=== PATIENT | female | born 1945 | race Caucasian/White ===

== ENCOUNTER → 2018-11-16 07:14 | Outpatient (CLI) | payer MEDICARE, SELFPAY ==
--- NOTE | 2018-11-16 07:21 | MRI_ITS ---
STUDY: MRA OF THE HEAD WITHOUT CONTRAST REASON FOR EXAM: Female, 73 years old. 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 The study was performed unenhanced. COMPARISON: Brain MRI 03/14/2016. FINDINGS: Normal bilateral petrous carotid arteries. Normal right cavernous carotid artery with a normal supraclinoid bifurcation. Normal left cavernous carotid artery with a normal supraclinoid bifurcation. Normal right A1 segments of the anterior cerebral artery. Normal left A1 segments of the anterior cerebral artery. Normal intact anterior communicating artery (ACOM). Normal bilateral A2 segments of the anterior cerebral arteries. Normal right M1 and M2 segments of the middle cerebral arteries, with a normal M1 bifurcation. Normal left M1 and M2 segments of the middle cerebral arteries, with a normal M1 bifurcation. Normal right posterior communicating artery (PCOM). Normal left posterior communicating artery (PCOM). There is an atretic right vertebral artery with a dominant left vertebral artery. Normal basilar artery with a normal basilar bifurcation. The visualized bilateral superior cerebellar (SCA) arteries are normal. Normal bilateral P1, P2 and visualized P3 segments of the posterior cerebral arteries. There is no demonstrated aneurysm of the [place]. There is no major vessel occlusion or hemodynamically significant stenosis. There is no demonstrated abnormality of the visualized brain. MRI/MRA Head ONLY without Contrast IMPRESSION: There is an atretic right vertebral artery with a dominant left vertebral artery. Otherwise normal [place]. Electronically Signed: Sissy Wilson, at 10:58 EDT Tel , Service support ,
--- NOTE | 2018-11-16 07:22 | MRI_ITS ---
STUDY: MRI BRAIN WITH AND WITHOUT CONTRAST REASON FOR EXAM: Female, 73 years old. 3rd nerve palsy, diplopia TECHNIQUE: Standardized multiplanar fat and water weighted pulse sequences were obtained. 10 IV Dotarem was administered for the contrast portion of the examination. COMPARISON: 03/14/2016 FINDINGS: There is moderate cerebral atrophy with widening of the extra-axial spaces and ventricular dilatation. There are multiple white matter hyperintensities, distributed throughout the deep white matter tracts of the cerebral hemispheres, consistent with moderate chronic white matter ischemic changes. There is no evidence for recent intracranial ischemia or other cause of cytotoxic edema on diffusion weighted imaging (DWI). Normal T2* images of the brain without demonstrated susceptibility artifact. There is no demonstrated hemosiderin stain. Normal bilateral basal ganglia. Normal thalami. There is no extra-axial fluid accumulation. Normal flow voids within the major intracranial circulation suggesting patency by spin echo criteria. Normal venous enhancement. There is no enhancing intra-axial or extra-axial abnormality. There is enlargement of the sella turcica with increased CSF within the sella and flattening of the pituitary gland consistent with an empty sellar syndrome. Normal infundibular stalk, hypothalamus, and optic chiasm. Normal tectal plate and pineal gland. Normal midbrain, bryant and medulla. Normal cerebellum. Normal basal cisterns. Normal bilateral temporal bones. Normal bilateral internal auditory canals. No demonstrated orbital abnormality, within the constraints of a routine brain study. Normal visualized paranasal sinuses. Normal calvarium and skull base. Normal visualized soft tissue structures. Normal visualized upper cervical spine. MRI/Brain W/WO Contrast IMPRESSION: Involutional changes of the brain, as described above. No acute infarct. Electronically Signed: Joshua Mcclure MD at 10:52 EDT Tel , Service support ,
[2018-11-16 07:35] LABS: Erythrocyte Sedimentation Rate 5 mm/hr (0-30)
[2018-11-16 07:37] LABS: Hematocrit 48.3 % (37-47); Hemoglobin 16.4 g/dL (12.0-15.0); Mean Corpuscular Hgb 33.4 pg (27.0-32.0); Mean Corpuscular Volume 98.4 fL (81-99); Mean Platelet Vol. 9.1 fl (6.2-12.0); Platelet Count 285 K/mm3 (150-450); RBC Distribution Width CV 13.1 % (11.6-14.6); RBC Distribution Width SD 47.2 fl (35.1-43.9); Red Blood Count 4.91 M/mm3 (4.2-5.4); White Blood Count 5.2 K/mm3 (4.4-11.0)
[2018-11-16 07:47] LABS: Creatinine, Serum 0.83 mg/dL (0.55-1.02); EST Glomerular Filtration Rate 72 mL/min (>60); Est Glom Filt Rate - Afr Amer 87 mL/min (>60)
== END ==
PROVIDERS: Family Provider Family Medicine; PCP Family Medicine; Referring Provider Ophthalmology; Visit Provider Ophthalmology
DX: H49.00 Third [oculomotor] nerve palsy, unspecified eye (principal)
CPT/HCPCS: 36415; 70544; 70553; 82565; 85027; 85652; 86140; A9575

== ENCOUNTER 2022-03-25 20:36 | Inpatient (IN) | payer MEDICARE, SELFPAY ==
[2022-03-25 20:37] VITALS: BP 136/57; PULSE 76; RESP 19; TEMP 36.4; O2SAT 96; BMI 22.9
--- NOTE | 2022-03-25 22:04 | EX.ED.DYSGE1 ---
HPI History of Present Illness Chief Complaint: Weakness Narrative Narrative: 77 female past medical history of hypertension, COPD, smoker, presents with generalized weakness and dehydration. She denies any nausea or vomiting. No diarrhea. No fevers or chills. Her son is with her and states that she had decreased urine output and has not been able to urinate all day. He states that she had an appointment with her primary care provider today at 10:00, 12 hours ago, stated that she was dehydrated, prescribed her sulfur pills. And sent her home. She has been drinking water but states that her mouth feels dry and she is thirsty. They state that she is here for IV fluids. [facility] Medical History Alcohol abuse COPD (chronic obstructive pulmonary disease) History of SIADH HTN (hypertension) Hypothyroid Seizure Tobacco use Home Medications levothyroxine 75 mcg tablet 75 mcg PO DAILY 03/12/16 [History Last Taken 03/12/16] lisinopril 20 mg tablet 40 mg PO DAILY 03/12/16 [History Last Taken 03/12/16] metoprolol tartrate 100 mg tablet 100 mg PO BID 03/12/16 [History Last Taken 03/12/16] amlodipine 5 mg tablet mg 03/25/22 [History Last Taken Unknown] omeprazole 20 mg tablet,delayed release 20 mg PO DAILY 03/25/22 [History Last Taken Unknown] Allergy/AdvReac Type Severity Reaction Status Date / Time Penicillins Allergy Unknown Verified 03/25/22 20:40 Family History (Updated 03/25/22 @ 23:[address] Allyssa Pang MD) Father Heart disease Hypertension Surgical History (Updated 03/25/22 @ 23:[address] Allyssa Pang MD) History of cataract surgery Social History (Updated 03/25/22 @ 23:[address] Allyssa Pang MD) Smoking Status: Current every day smoker tobacco type: cigarettes Smoking packs per day: 1 Smoking cigarettes per day: 20.0 alcohol intake: current substance use type: does not use ROS ROS ED ROS Narrative Constitutional: No fever, no chills. HEENT: No sore throat. No neck pain. No loss of vision. No rhinorrhea. Cardiovascular: No chest pain. No palpitations. No pedal edema. Respiratory: No cough, no shortness of breath. Abdominal: No abdominal pain. No nausea. No vomiting. No diarrhea. Genitourinary: No dysuria. No hematuria. Decreased urine output. No urination since yesterday. Musculoskeletal: No myalgias. No arthralgias. Neurologic: No headaches. No dizziness. No lightheadedness. Generalized weakness. Skin: No rash. No change in color. Psychiatric: No depression. No anxiety. EXAM Physical Exam Narrative Exam Narrative: Afebrile. Vital signs noted. HEENT: Normocephalic. Atraumatic. PERRL, EOMI. Neck soft and supple. No point tenderness or step off. Cardiovascular: Regular rate and rhythm. No murmurs, rubs, or gallops appreciated. Respiratory: No tachypnea. Lungs clear to auscultation bilaterally. Gastrointestinal: Abdomen soft, nontender, with normoactive bowel sounds. No rebound or guarding. Neurological: Awake. Alert. Nonfocal, nonlateralizing. Skin: No rash. Normal color. No pallor. Musculoskeletal: No pedal edema. Full range of motion extremities. Const Vital Signs: 03/25/22 20:37 03/25/22 21:35 03/25/22 22:36 Temperature 97.5 F L Temperature Source Oral Pulse Rate 76 82 Respiratory Rate 19 H 25 H Respiratory Effort Normal Respiratory Pattern Normal Blood Pressure 136/57 H Blood Pressure Mean 83 Pulse Ox 96 96 Oxygen Delivery Method Room Air MDM MDM MDM Narrative Medical decision making narrative: Patient was bolused IV fluids. She is not hypotensive. She is not tachycardic. I will check a CBC, CMP, and urinalysis. CMP is returned with a sodium of 107 and a chloride of 69. BUN normal at 11 with creatinine of 0.83. AST slightly elevated to 21 which I think is nonspecific. CBC is currently pending. In discussion with the hospitalist, she has had hyponatremia and seizures secondary to SIADH. Given her low sodium of 107, she was admitted to the ICU in stable condition. There is been no seizure activity here currently. Cath urine is currently pending also. Patient is in guarded condition. Lab Data Attestation: I reviewed the patient's lab results. Labs: Laboratory Results - last 24 hr 03/25/22 20:55 Sodium 107 L* Potassium 3.9 Chloride 69 L* Carbon Dioxide 22.0 Anion Gap 16 H BUN 11 Creatinine 0.83 Estim Creat Clear Calc 45.61 Est GFR (MDRD) Af Amer 86 Est GFR (MDRD) Non-Af 71 BUN/Creatinine Ratio 13.3 Glucose 102 Calcium 8.9 Total Bilirubin 1.00 AST 221 H ALT 45 Alkaline Phosphatase 63 Total Protein 7.0 Albumin 3.6 Globulin 3.4 Albumin/Globulin Ratio 1.1 Critical Care Time Critical Care Time: Yes Critical care time (excluding procedures): 30-74 minutes (31), Including time spent:, Discussing w/Patient &/or Family/Leather Scraper, Discussing w/Consultants, Arranging Admission or Transfer and Performing Direct Patient Care at Bedside Discharge Plan Dx/Rx/DC Orders Clinical Impression: Hyponatremia, Dehydration, Hypochloremia Disposition Disposition: Acute Care Hospital [facility] [facility]
[2022-03-25] MEDS: 0.9% Normal Saline 1,000 ML 999 ML IV (22:14)
[2022-03-25 22:36] VITALS: PULSE 82; RESP 25; O2SAT 96
[2022-03-25 22:36] LABS: ALB/GLOB Ratio 1.1 RATIO (0.9-2.4); AST(SGOT) 221 U/L (15-37); Alanine Aminotransfer ALT/SGPT 45 U/L (13-56); Albumin, Serum 3.6 g/dL (3.2-5.0); Alkaline Phosphatase 63 U/L (45-117); Anion Gap 16 (5-15); BUN 11 mg/dL (7-18); BUN/Creat Ratio 13.3 RATIO (10-20); Calcium,Total 8.9 mg/dL (8.5-10.1); Chloride 69 mmol/L (98-107); Creatinine, Serum 0.83 mg/dL (0.55-1.02); EST Glomerular Filtration Rate 71 mL/min (>60); Est Glom Filt Rate - Afr Amer 86 mL/min (>60); Estimated Creatinine Clearance 45.61 ml/min; Globulin 3.4 g/dL (2.2-4.2); Glucose 102 mg/dL (74-106); Potassium 3.9 mmol/L (3.5-5.1); Sodium Level 107 mmol/L (136-145)
[2022-03-25 23:16] LABS: Bacteria 0 SEEN /hpf (None Seen); Mucous, Urine 0 SEEN /hpf (<or=2+); Red Blood Cells-Urine 0 SEEN /hpf (0-5); Squamous Epithelial Cells - UA 0 SEEN /hpf (5-10)
--- NOTE | 2022-03-25 23:16 | PCM.HP.STD ---
HPI - General General Date of Admission: 03/25/22 Date of Service: 03/25/22 Chief Complaint: Weakness, dehydration, decreased UOP. HPI Narrative The patient is a 77 y/o F w/ PMHx: History of prior seizure in the settings of Acute Hyponatremia (2015) perported SIADH related at that time, EtOH abuse (heavy beer intake history), HTN, COPD, Hypothyroidism who presents to the [facility] ED on 03/25/22 with history of significant weakness and significant decreased oral intake as well as profound urine output decrease reportedly not urinating all day with PCP evaluation at 10 AM on day of presentation diagnosed with dehydration prescribed potentially sulfa pills per report and discharged to home with encouragement of increased oral intake. She states she has been drinking water but her mouth feels dry and she is thirsty. Work-up in the ED included T97.5, heart rate 76, BP 136/57, respiratory rate 19, 96% on room air, CBC pending upon requested evaluation of patient, CMP with sodium 107, chloride 69, anion gap 16, BUN/creatinine 11/0.83, AST/ALT 221/45, alk phos 63, total bilirubin 1.0 otherwise [place] profile not marked appearing. In the ED patient administered 1 L normal saline bolus. [facility] Medical History Alcohol abuse COPD (chronic obstructive pulmonary disease) History of SIADH HTN (hypertension) Hypothyroid Seizure Tobacco use Home Medications levothyroxine 75 mcg tablet 75 mcg PO DAILY 03/12/16 [History Last Taken 03/12/16] lisinopril 20 mg tablet 40 mg PO DAILY 03/12/16 [History Last Taken 03/12/16] metoprolol tartrate 100 mg tablet 100 mg PO BID 03/12/16 [History Last Taken 03/12/16] amlodipine 5 mg tablet mg 03/25/22 [History Last Taken Unknown] omeprazole 20 mg tablet,delayed release 20 mg PO DAILY 03/25/22 [History Last Taken Unknown] Allergy/AdvReac Type Severity Reaction Status Date / Time Penicillins Allergy Unknown Verified 03/25/22 20:40 Family History (Updated 03/25/22 @ 23:[address] Allyssa Pang MD) Father Heart disease Hypertension Surgical History (Updated 03/25/22 @ 23:[address] Allyssa Pang MD) History of cataract surgery Social History (Updated 03/26/22 @ 01:[address] Allyssa Pang MD) Smoking Status: Current every day smoker tobacco type: cigarettes Smoking packs per day: 1 Smoking cigarettes per day: 20.0 alcohol intake: current alcohol intake frequency: 3 or more drinks per day details: Reports at least 2-4 beers daily. substance use type: does not use ROS ROS Narrative Admission Review of Systems: CONSTITUTIONAL: No weight loss, fever, chills, + weakness or fatigue. HEENT: Eyes: No visual loss, blurred vision, double vision or yellow sclerae. Ears, Nose, Throat: No hearing loss, sneezing, congestion, runny nose or sore throat. SKIN: No rash or itching, lesions, wounds. CARDIOVASCULAR: No chest pain, chest pressure or chest discomfort, palpitations, edema, orthopnea, syncopal events. RESPIRATORY: No shortness of breath, cough or sputum, wheezing, hemoptysis. GASTROINTESTINAL: + anorexia, No nausea, vomiting or diarrhea, abdominal pain, melena, BRBPR. GENITOURINARY: No dysuria, frequency, urgency or retention. NEUROLOGICAL: + Hx prior seizure, No headache, dizziness, syncope, paralysis, ataxia, numbness or tingling in the extremities, focal weakness, change in bowel or bladder control, seizure. MUSCULOSKELETAL: + muscle, back pain, joint pain or stiffness. HEMATOLOGIC: + Easy bleeding or bruising. LYMPHATICS: No enlarged nodes. No history of splenectomy. PSYCHIATRIC: No history of depression or anxiety. ENDOCRINOLOGIC: No reports of sweating, cold or heat intolerance. No polyuria or polydipsia. ALLERGIES: No history of asthma, hives, eczema or rhinitis. Vital Signs Vital Signs Vital Signs: 03/25/22 20:37 03/25/22 21:35 03/25/22 22:36 Temperature 97.5 F L Temperature Source Oral Pulse Rate 76 82 Respiratory Rate 19 H 25 H Respiratory Effort Normal Respiratory Pattern Normal Blood Pressure 136/57 H Blood Pressure Mean 83 Pulse Ox 96 96 Oxygen Delivery Method Room Air Weight Weight: 125 lb 7.088 oz Body Mass Index (BMI) 22.9 Physical Exam Narrative Physical Examination: General: Awake, alert, oriented x 3 and cooperative, laying in the ED bed, fatigued appearing, flat affect. Skin: Normal color, decreased turgor, no icterus, no cyanosis. HEENT: AT/NC, EOMI, PERRLA, dry MM, no carotid bruits or JVD noted. Lungs: Mildly diminished, greater bases, occasional end expiratory wheeze, rales or rhonchi. Heart: Regular rate and rhythm; no gallop, rub audible. Abdomen: Soft, NTTP, ND, mildly hyperactive BS, + HM. Extremities: No cyanosis, clubbing, or edema. Neurological: Patient awake, alert, oriented as noted, cognitive function appears baseline intact; pupils equally reactive to light and accommodation, cranial nerves II-XII grossly normal, moving all 4 extremities, no focal deficits, strength moderately to severely globally Emiliana secondary to acute presentation. Psychiatric: Affect appears flat, fatigued , no acute evidence of depressive or anxiety feelings. Results Lab / Micro Data Result Diagrams: 03/25/22 20:55 03/25/22 20:55 Labs: Laboratory Results - last 24 hr 03/25/22 20:55: Sodium 107 L*, Potassium 3.9, Chloride 69 L*, Carbon Dioxide 22.0, Anion Gap 16 H, BUN 11, Creatinine 0.83, Estim Creat Clear Calc 45.61, Est GFR (MDRD) Af Amer 86, Est GFR (MDRD) Non-Af 71, BUN/Creatinine Ratio 13.3, Glucose 102, Calcium 8.9, Total Bilirubin 1.00, AST 221 H, ALT 45, Alkaline Phosphatase 63, Total Protein 7.0, Albumin 3.6, Globulin 3.4, Albumin/Globulin Ratio 1.1 Assessment & Plan Assessment/Plan (1) Hyponatremia: PLAN: Plan The patient is a 77 y/o F w/ PMHx: History of prior seizure in the settings of Acute Hyponatremia (2015) perported SIADH related at that time, EtOH abuse (heavy beer intake history), HTN, COPD, Hypothyroidism who presents to the [facility] ED on 03/25/22 with history of significant weakness and significant decreased oral intake as well as profound urine output decrease reportedly not urinating all day with PCP evaluation at 10 AM on day of presentation diagnosed with dehydration prescribed potentially sulfa pills per report and discharged to home with encouragement of increased oral intake. #1. Acute on Chronic Hyponatremia, suspected hypovolemic component given significant decreased oral intake and urine output decreased complicated by potentially beer potomania with alcohol abuse history however patient does have prior SIADH history, certainly still concern could be SIADH but again concern for hypovolemic initially so cautiously hydrating: Admission Na 107, baseline appearance last noted 1 25-1 30 baseline range, suspect secondary to currently significant dehydration at least from history, will admit to the ICU, continue judicious normal saline at this point, continue to closely monitor, obtain FeNa, Ilda, UOsm, mag, TSH, renal US given no urine output to be cautious, will obtain nephrology given significant prior history with similar hyponatremia presentation but at that time SIADH with seizure activity, repeat serial BMPs, will defer/give hypertonic saline at this time however if any concerns with headache, nausea, ataxia, confusion or certainly seizure activity will transition to hypertonic saline. Photographic Editor will also be consulted. Will avoid medications that would exacerbate hyponatremia such as NSAIDs, thiazide diuretic, or SSRIs. #2. EtOH Abuse: Patient notes routine consumption of at least 2-4 beers per day. Will maintain on CIWA protocol, MVI, thiamine and folic acid. Case management consulted for substance abuse. Encourage safe sobriety. #3. Chronic COPD: Not on any chronic inhaler, PRN albuterol, HOB, IS parameters. #4. Hypertension: Continue home regimen including metoprolol, lisinopril, amlodipine with hold parameters as needed, PRN hydralazine. #5. Hypothyroidism: We will continue patient home levothyroxine regimen. #6. Tobacco Abuse: Encouraged cessation, inpatient consultation per RT, NR if desired. #7. GERD: We will continue patient on PPI. #8. DVT prophylaxis: SCDs, Lovenox. #9. CODE status: Patient ETIENNE is her son Rogerio and living will is per report currently in place. Discussed CODE status at length including difference between FULL code, DNR-CCA and DNR-CC status. Following discussions about the differences in these status, requested Full Code status. Advanced Care Planning Face to Face Time: 16 minutes. Charges/Coding Visit Charges Inpatient E&M: 85360 Init Hosp L3 Procedures Hospitalists Procedures: 33911 Advncd Care Plan 30 Min
[2022-03-25 23:20] LABS: Color, Urine Yellow (Yellow); Glucose, Dipstick 50 mg/dl (Normal); Leukocyte Esterase-Dipstick 25 /ul (Negative); Nitrite-Dipstick Negative (Negative); Occult Blood-Urine 250 /ul (Negative); Protein-Dipstick 30 mg/dl (Negative); Urine Bilirubin Dipstick Negative (Negative); Urine Clarity Clear (Clear); Urine Urobilinogen 1 mg/dl (Normal)
[2022-03-25 23:31] LABS: Ketone-Dipstick 150 mg/dl (Negative)
[2022-03-25 23:45] LABS: White Blood Cells 0-5 SEEN /hpf (0-5)
[2022-03-25 23:47] VITALS: BP 102/36; PULSE 73; RESP 22; TEMP 37.2; O2SAT 94
[2022-03-26] VITALS (62 sets, daily range): BP systolic 70–173; BP diastolic 38–95; PULSE 11–98; RESP 14–27; TEMP 36.7–37.7; O2SAT 93–100; BMI 28.1
--- NOTE | 2022-03-26 00:22 | ED.RN ---
PATIENTS NITZA CRAWLEY CALLED, MESSAGE LEFT. UPDATED THAT PATIENT WILL BE ADMITTED TO ICU TONIGHT.
[2022-03-26 00:57] LABS: Magnesium 1.9 mg/dL (1.6-2.6); Phosphorus 2.3 mg/dL (2.5-4.9)
[2022-03-26 02:13] LABS: Urine Sodium 86 mmol/L (Not Establ.)
--- NOTE | 2022-03-26 02:49 | ED.RN ---
DUE TO PATIENTS EXTENDED STAY IN ED WAITING FOR ICU BED, THIS RN STARTED IV FLUIDS ORDERED BY DR LITTLEJOHN 0.9NS AT 100ML/HR AT THIS TIME. UNABLE TO DOCUMENT ON MAY DUE TO IT BEING AN ADMISSION ORDER.
[2022-03-26 02:56] LABS: Absolute Lymphocyte Count 0.38 X10^3/uL (0.83-4.51); Basophil# 0.01 X10^3/uL; Basophil% 0.1 % (0-1); Hematocrit 41.7 % (37-47); Lymphocyte # 0.38 X10^3/ul (0.83-4.51); Lymphocyte % 3.6 % (19-41); Mean Corpuscular Volume 87.8 fL (81-99); Mean Platelet Vol. 9.5 fl (6.2-12.0); Monocyte# 0.88 X10^3/uL; Monocyte% 8.4 % (0-10); NRBC Flagged by Analyzer 0 % (0-5); Neutrophil # 8.96 X10^3/uL (2.7-7.7); Neutrophil % 85.8 % (47-70); POSITIVE COUNT YES; POSITIVE DIFFERENTIAL YES; Platelet Count 176 K/mm3 (150-450); RBC Distribution Width SD 38.8 fl (35.1-43.9); Red Blood Count 4.75 M/mm3 (4.2-5.4); White Blood Count 10.4 K/mm3 (4.4-11.0)
[2022-03-26] MEDS: 0.9% Normal Saline 1,000 ML 100 ML IV ×3 (04:45→18:47)
[2022-03-26 05:03] LABS: Osmolality, Urine 447 mOsm/KG
--- NOTE | 2022-03-26 05:55 | US_ITS ---
STUDY: RENAL ULTRASOUND - COMPLETE REASON FOR EXAM: Female, 77 years old. Oliguria, hyponatremia TECHNIQUE: Ultrasound evaluation of the kidneys was performed with real-time and static irving-scale imaging. COMPARISON: None. FINDINGS: RIGHT KIDNEY: Normal location of the right kidney, which is normal in size for age. The right kidney measures 8.7 x 3.9 x 3.8 cm. There is a normal cortex of the right kidney. The renal cortex measures 0.9 cm. There is no right renal mass or cyst. There are no right renal calculi. There is no right hydronephrosis. DISTAL RIGHT URETER: There is non-visualization of the distal right ureter. There is no demonstrated right ureterovesical junction calculus. There is a visualized right ureteral jet. LEFT KIDNEY: Normal location of the left kidney, which is normal in size for age. The left kidney measures 8.1 x 4.8 x 4.8 cm. There is a normal cortex of the left kidney. The renal cortex measures 0.9 cm. There is no left renal mass or cyst. There are no left renal calculi. There is no left hydronephrosis. DISTAL LEFT URETER: There is non-visualization of the distal left ureter. There is no demonstrated left ureterovesical junction calculus. There is a visualized left ureteral jet. BLADDER: The bladder is collapsed around a Larson catheter US/Kidney and Bladder IMPRESSION: Age consistent changes, no acute findings Electronically Signed: Prince Morris MD at 14:55 EST ,
[2022-03-26] MEDS: Etomidate 20 MG/10 ML Vial IV (06:45)
[2022-03-26] MEDS: Succinylcholine Chloride 200 MG/10 ML Vial 100 MG IV ×2 (06:47→07:00)
[2022-03-26] MEDS: Propofol 10MG/Ml 1,000 MG/100 ML Bottle 4.2 MG CONT INF ×2 (06:48→20:08)
--- NOTE | 2022-03-26 06:48 | RAD_ITS ---
INDICATION: ET/ OG tube placement EXAMINATION/TECHNIQUE: X-RAY - XR Chest 1 View COMPARISON: 03/12/2016 FINDINGS: LINES/DEVICES: Enteric tube extends below the diaphragm beyond the [id number]. Endotracheal tube terminates 3.5 cm above the . LUNGS: No consolidation, edema or effusion. No pneumothorax. MEDIASTINUM AND CARDIOVASCULAR STRUCTURES: Atherosclerotic calcifications and cardiomediastinal contours, similar compared to the prior. BONES AND SOFT TISSUES: Unremarkable. RAD/Chest 1 View (Portable) IMPRESSION: Enteric tube extends below the diaphragm beyond the [id number]. Endotracheal tube terminates 3.5 cm above the . Electronically Signed: Jorge L Kovacs MD at 7:32 EST ,
[2022-03-26 06:49] LABS: ALB/GLOB Ratio 0.9 RATIO (0.9-2.4); AST(SGOT) 197 U/L (15-37); Alanine Aminotransfer ALT/SGPT 44 U/L (13-56); Albumin, Serum 2.8 g/dL (3.2-5.0); Alkaline Phosphatase 51 U/L (45-117); Anion Gap 11 (5-15); BUN 9 mg/dL (7-18); BUN/Creat Ratio 16.9 RATIO (10-20); Calcium,Total 7.9 mg/dL (8.5-10.1); Chloride 74 mmol/L (98-107); Creatinine, Serum 0.53 mg/dL (0.55-1.02); EST Glomerular Filtration Rate 118 mL/min (>60); Est Glom Filt Rate - Afr Amer 143 mL/min (>60); Estimated Creatinine Clearance 37.85 ml/min; Globulin 3.1 g/dL (2.2-4.2); Glucose 72 mg/dL (74-106); Potassium 3.7 mmol/L (3.5-5.1); Protein, Total 5.9 g/dL (6.4-8.2); Sodium Level 107 mmol/L (136-145); Thyroid Stim Hormone (TSH) 1.15 uIU/mL (0.358-3.74)
--- NOTE | 2022-03-26 06:55 | PCM.HOSP.N ---
Hospitalist Note Patient transitioned to the ICU, rapid response called at ~6:45 am, patient with seizure activity, unsafe airway, intubated per Dr. Lindsey. Will transition to hypertonic saline now. Dr. Lindsey will review patient with Nephrology. Repeat Na 107 and Chl 74 now.
--- NOTE | 2022-03-26 07:00 | NURSING ---
MD verbal order at bedside to increase Propofol to 20 and Fentanyl to 150
--- NOTE | 2022-03-26 07:07 | CON.PCM.CC_ITS ---
Assessment & Plan Assessment/Plan (1) Hyponatremia: PLAN: Plan RECOMMENDATIONS: 1. Continue assist-control mode mechanical ventilation. 2. Obtain arterial blood gas. Obtain and send sputum for culture. 3. Obtain CT head. 4. Maintain seizure precautions and utilize as needed Ativan. 5. Cautious sodium correction per nephrology. 6. Continue propofol and fentanyl for sedation. 7. Levophed, if needed, to maintain a mean arterial pressure at or above 65 mmHg. 8. Continue appropriate ICU prophylaxis. IMPRESSIONS: 1. Acute hypoxemic respiratory failure The patient was ultimately intubated after she developed hypoxemia after experiencing a seizure. There was no witnessed aspiration event. The patient was emergently intubated. There was no focal infiltrate on chest imaging. Therefore, the patient will be continued on assist control mode of mechanical ventilation. FiO2 will be weaned for saturations greater than 90%. Continue current sedation regimen. 2. Significant hyponatremia and associated seizures Likely secondary to a combination of intravascular volume depletion and chronic alcohol dependency. 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 Plan to continue cautious correction of her underlying sodium derangement, per nephrology recommendations. Continue to monitor serial sodium levels as ordered. Maintain seizure precautions and as needed Ativan. Obtain CT head in light of the patient's seizure activity this morning. 3. Shock Most likely secondary to the hemodynamic effects of the sedative medications being utilized to keep the patient comfortable while on the ventilator. Prior to intubation and initiation of sedative medications, the patient was hemodynamically stable. Plan to continue Levophed to maintain a mean arterial pressure at or above 65 mmHg. Recommend avoiding overzealous administration of normal saline, given cautious nature of sodium correction needed. 4. Chronic alcohol and tobacco dependency The patient does have a chronic alcohol and tobacco dependency, verified by family. She apparently takes in very little nutrition by home and drinks alcohol on a daily basis. The patient would likely benefit from nicotine replacement therapy while admitted to the hospital. She will need to be monitored closely for any evidence of refeeding syndrome, once tube feeding is initiated. 5. History of hypertension/hypothyroidism/GERD Complicates care, management, recovery and prognosis. Continue to hold home medications for now given tenuous hemodynamics. TIME: 42 minutes of critical care time, independent of procedures, was spent addressing the patient's acute hypoxemic respiratory failure, hyponatremia, seizures, shock, chronic alcohol and tobacco dependency, review of all data and collaboration with the care team. HPI Consult Data Date of Consult: 03/26/22 HPI Narrative Reason for Consultation: Hyponatremia, seizures HPI Narrative: The patient is a 77-year-old female, with a history as outlined below, who presented to the emergency department via EMS on March 25 with generalized weakness and dehydration. History pertinent to her hospitalization was obtained primarily via chart review, as the patient is currently intubated and mechanically ventilated. She does have a reported history of alcohol dependency and COPD. The patient was hospitalized under similar circumstances in February 2016, during which time, she was noted to be hyponatremic and experienced seizure activity. She was felt to have an element of SIADH at that time. On presentation to the emergency department, the patient was noted to be afebrile and hemodynamically stable. Initial laboratory evaluation revealed no evidence of a leukocytosis. Chemistry profile was notable for a sodium of 107, chloride of 69, anion gap of 16 and phosphorus of 2.3. AST was increased to 221. TSH was within normal limits. Urine analysis was positive for ketones and leukocyte Estrace. No urine bacteria was noted. Urine osmolality was noted to be 447 with a urine sodium of 86 and urine creatinine of 58. The patient was initially placed on normal saline and admitted to the medical intensive care. During the crew person hours of March 26, the patient experienced a generalized tonic-clonic seizure, which was treated with 2 mg of IV Ativan. The patient became unresponsive, with concern for her ability to protect her airway. Therefore, she was emergently intubated and placed on the ventilator. Nephrology was contacted who recommended a 50 cc bolus of 3% saline. Intubation Indication: Airway compromise Consent was obtained from: Performed emergently The patient was placed in the appropriate sniffing position. Preoxygenated sedation via [id number] was provided for a minimum of 3 minutes. The patient had continuous cardiac as well as pulse oximetry monitoring during the procedure. Procedure sedation was provided by the administration of 20 mg of etomidate. Direct laryngoscopy was then performed using a number 3 MAC blade, which revealed a grade 1 view. A 7.0 mm endotracheal tube was visualized adv ancing between the cords to the level of 23 cm at the lip. The stylette was then removed and discarded. Tube placement was confirmed by fogging in the tube along with equal and bilateral breath sounds. Colorimetric change was visualized on the CO2 meter. The cuff was then inflated and the tube secured using a commercially available device. A good pulse oximetry waveform was seen on the monitor throughout the procedure. A portable chest x-ray has been ordered to confirm appropriate placement. The patient tolerated the procedure well. REPLACED BY [facility] Medical History Alcohol abuse COPD (chronic obstructive pulmonary disease) History of SIADH HTN (hypertension) Hypothyroid Seizure Tobacco use Home Medications levothyroxine 75 mcg tablet 75 mcg PO DAILY 03/12/16 [History Last Taken 03/12/16] lisinopril 20 mg tablet 40 mg PO DAILY 03/12/16 [History Last Taken 03/12/16] metoprolol tartrate 100 mg tablet 100 mg PO BID 03/12/16 [History Last Taken 03/12/16] amlodipine 5 mg tablet mg 03/25/22 [History Last Taken Unknown] omeprazole 20 mg tablet,delayed release 20 mg PO DAILY 03/25/22 [History Last Taken Unknown] Allergy/AdvReac Type Severity Reaction Status Date / Time Penicillins Allergy Unknown Verified 03/25/22 20:40 Family History (Updated 03/25/22 @ 23:[address] Allyssa Pang MD) Father Heart disease Hypertension Surgical History (Updated 03/25/22 @ 23:[address] Allyssa Pang MD) History of cataract surgery Social History (Updated 03/26/22 @ 01:[address] Allyssa Pang MD) Smoking Status: Current every day smoker tobacco type: cigarettes Smoking packs per day: 1 Smoking cigarettes per day: 20.0 alcohol intake: current alcohol intake frequency: 3 or more drinks per day details: Reports at least 2-4 beers daily. substance use type: does not use ROS Review of Systems ROS Unobtainable: due to endotracheal tube and due to mental status Physical Exam Const General Appearance: intubated and patient mechanically ventilated HEENT normocephalic and head/scalp atraumatic Mouth: endotracheal tube in place and OG tube in place Eyes PERRL and EOMs intact bilaterally Neck supple General: trachea midline and CVC in place Chest inspection of chest normal Resp Auscultation: diminished lung sounds; Negative for rales, rhonchi or wheezes Cardio regular rate and regular rhythm GI normal to inspection, nondistended, normoactive bowel sounds Extremity no clubbing, cyanosis or edema Skin no rashes or lesions noted Neuro Sensorium / Orientation: sedated on vent Lab / Micro Data Result Diagrams: 03/26/22 05:50 03/26/22 10:10 Labs: Laboratory Results - last 24 hr 03/25/22 20:55: WBC 10.4, RBC 4.75, Hgb TNP, Hct 41.7, MCV 87.8, MCH TNP, MCHC TNP, RDW Std Deviation 38.8, RDW Coeff of Vlad 12.0, Plt Count 176, MPV 9.5, Immature Gran % (Auto) 1.100 H, Neut % (Auto) 85.8 H, Lymph % (Auto) 3.6 L, [place] % (Auto) 8.4, Eos % (Auto) 1.0, Baso % (Auto) 0.1, Absolute Neuts (auto) 9.0 H, Absolute Lymphs (auto) 0.38 L, Nucleated RBC % 0 03/25/22 20:55: Sodium 107 L*, Potassium 3.9, Chloride 69 L*, Carbon Dioxide 22.0, Anion Gap 16 H, BUN 11, Creatinine 0.83, Estim Creat Clear Calc 45.61, Est GFR (MDRD) Af Amer 86, Est GFR (MDRD) Non-Af 71, BUN/Creatinine Ratio 13.3, Glucose 102, Calcium 8.9, Total Bilirubin 1.00, AST 221 H, ALT 45, Alkaline Phosphatase 63, Total Protein 7.0, Albumin 3.6, Globulin 3.4, Albumin/Globulin Ratio 1.1 03/25/22 20:55: Phosphorus 2.3 L, Magnesium 1.9 03/25/22 23:00: Urine Color Yellow, Urine Clarity Clear, Urine pH 6.0, Ur Specific [place] 1.020, Urine Protein 30 H, Urine Glucose (UA) 50 H, Urine Ketones 150 A*, Urine Occult Blood 250 H, Urine Nitrite Negative, Urine Bilirubin Negative, Urine Urobilinogen 1 H, Ur Leukocyte Esterase 25 H, Urine RBC 0 SEEN, Urine WBC 0-5 SEEN, Ur Squamous Epith Cells 0 SEEN, Urine Bacteria 0 SEEN, Urine Mucus 0 SEEN 03/25/22 23:00: Urine Osmolality 447, Ur Random Sodium 86, Urine Creatinine 58.00 03/26/22 05:50: Sodium 107 L*, Potassium 3.7, Chloride 74 L*, Carbon Dioxide 22.0, Anion Gap 11, BUN 9, Creatinine 0.53 L, Estim Creat Clear Calc 37.85, Est GFR (MDRD) Af Amer 143, Est GFR (MDRD) Non-Af 118, BUN/Creatinine Ratio 16.9, Glucose 72 L, Calcium 7.9 L, Total Bilirubin 0.70, AST 197 H, ALT 44, Alkaline Phosphatase 51, Total Protein 5.9 L, Albumin 2.8 L, Globulin 3.1, Albumin/Globulin Ratio 0.9, TSH 1.15 Charges/Coding Procedures Hospitalists Procedures: 47929 Critial Care 1st Hr
[2022-03-26 07:41] LABS: Base Excess -6 mmol/L (-2 to +2); Bicarbonate 19.7 mmol/L (22-26); Blood Gas Specimen Type ART; FI02 100; O2 Delivery Device Adult Vent; PEEP 5; PO2 481 mmHG (75-100); RR 14; SITE R Fem; SO2 100 % (95-99); Total Carbon Dioxide 21 mmol/L; Vt 400; pCO2 35.8 mmHg (35-45); pH 7.35 (7.35-7.45)
--- NOTE | 2022-03-26 08:00 | RAD_ITS ---
STUDY: X-RAY CHEST REASON FOR EXAM: Female, 77 years old. Line placement TECHNIQUE: Single AP portable view of the chest. COMPARISON: Earlier today FINDINGS: Since the previous study, a right IJ central venous catheter has been placed, tip is in the distal SVC, no complications. Stable appearance of the ET tube, NG tube, and EKG leads The lungs are clear and expanded. There is no demonstrated pleural abnormality. Normal size heart. Normal mediastinum and lydia. Normal visualized pulmonary arteries. Normal visualized aortic arch and descending thoracic aorta. Normal visualized thoracic spine. Normal visualized ribs, clavicles, and shoulders. There is no demonstrated abnormality of the visualized soft tissue structures of the upper abdomen. RAD/Chest 1 View (Portable) IMPRESSION: No acute pulmonary process Support lines and tubes as described, no complications Electronically Signed: Prince Morris MD at 8:31 EST ,
--- NOTE | 2022-03-26 08:13 | PCM.PN.HOSP ---
Subjective Subjective Patient was seen and examined today in ICU, early this morning she was intubated after having a seizure, I talked with pulmonary medicine about her care and I also talked with nephrology. Nephrology wanted the patient to have 50 cc of 3% saline solution, and then no fluids. Patient's CBC is pending this morning, her sodium was 107 this morning and chloride was 74. Critical care is putting a central line in the patient due to hypotension Objective Data Objective Data Vital Signs: Vital Signs Temp Pulse Resp BP Pulse Ox O2 Del Method FiO2 98.9 F 82 14 129/95 H 97 Room Air 50 03/25/22 23:47 03/26/22 06:45 03/26/22 06:45 03/26/22 03:00 03/26/22 06:45 03/26/22 06:00 03/26/22 08:01 Oxygen Delivery Method Room Air Weight: 69.8 kg Body Mass Index (BMI) 28.1 Intake & Output: Intake and Output for Last 24 Hours 03/24/22 03/25/22 03/26/22 23:59 23:59 23:59 Intake Total 1000 / 1000 Balance 1000 / 1000 Lab / Micro Data Result Diagrams: 03/25/22 20:55 03/26/22 05:50 Labs: Laboratory Results - last 24 hr 03/25/22 20:55: WBC 10.4, RBC 4.75, Hgb TNP, Hct 41.7, MCV 87.8, MCH TNP, MCHC TNP, RDW Std Deviation 38.8, RDW Coeff of Vlad 12.0, Plt Count 176, MPV 9.5, Immature Gran % (Auto) 1.100 H, Neut % (Auto) 85.8 H, Lymph % (Auto) 3.6 L, [place] % (Auto) 8.4, Eos % (Auto) 1.0, Baso % (Auto) 0.1, Absolute Neuts (auto) 9.0 H, Absolute Lymphs (auto) 0.38 L, Nucleated RBC % 0 03/25/22 20:55: Sodium 107 L*, Potassium 3.9, Chloride 69 L*, Carbon Dioxide 22.0, Anion Gap 16 H, BUN 11, Creatinine 0.83, Estim Creat Clear Calc 45.61, Est GFR (MDRD) Af Amer 86, Est GFR (MDRD) Non-Af 71, BUN/Creatinine Ratio 13.3, Glucose 102, Calcium 8.9, Total Bilirubin 1.00, AST 221 H, ALT 45, Alkaline Phosphatase 63, Total Protein 7.0, Albumin 3.6, Globulin 3.4, Albumin/Globulin Ratio 1.1 03/25/22 20:55: Phosphorus 2.3 L, Magnesium 1.9 03/25/22 23:00: Urine Color Yellow, Urine Clarity Clear, Urine pH 6.0, Ur Specific [place] 1.020, Urine Protein 30 H, Urine Glucose (UA) 50 H, Urine Ketones 150 A*, Urine Occult Blood 250 H, Urine Nitrite Negative, Urine Bilirubin Negative, Urine Urobilinogen 1 H, Ur Leukocyte Esterase 25 H, Urine RBC 0 SEEN, Urine WBC 0-5 SEEN, Ur Squamous Epith Cells 0 SEEN, Urine Bacteria 0 SEEN, Urine Mucus 0 SEEN 03/25/22 23:00: Urine Osmolality 447, Ur Random Sodium 86, Urine Creatinine 58.00 03/26/22 05:50: Sodium 107 L*, Potassium 3.7, Chloride 74 L*, Carbon Dioxide 22.0, Anion Gap 11, BUN 9, Creatinine 0.53 L, Estim Creat Clear Calc 37.85, Est GFR (MDRD) Af Amer 143, Est GFR (MDRD) Non-Af 118, BUN/Creatinine Ratio 16.9, Glucose 72 L, Calcium 7.9 L, Total Bilirubin 0.70, AST 197 H, ALT 44, Alkaline Phosphatase 51, Total Protein 5.9 L, Albumin 2.8 L, Globulin 3.1, Albumin/Globulin Ratio 0.9, TSH 1.15 ABG Data ABG results: ABG 03/26/22 07:33 Specimen Type ART Sample Site R Fem pH 7.35 Bicarbonate Actual 19.7 L Total CO2 21 Base Excess -6 L O2 Saturation 100 H O2 % 100 ABG pCO2 35.8 ABG pO2 481 H* Respiration Rate 14 O2 Delivery Device Adult Vent Tidal Volume 400 POC PEEP 5 Crit Call To/Read Back Yes Blood Gas Notified Whom brown Radiography Diagnostic Testing: Radiology Impression Chest X-Ray 03/26/22 06:48 IMPRESSION: Enteric tube extends below the diaphragm beyond the [id number]. Endotracheal tube terminates 3.5 cm above the . Electronically Signed: Jorge L Kovacs MD at 7:32 EST , Physical Exam Const Constitutional Narrative: Patient is sedated and on the ventilator HEENT head/scalp atraumatic Neck no JVD Resp normal respiratory effort, no retractions and clear to auscultation bilaterally Resp Narrative: Patient is on the ventilator at this time Cardio regular rate, regular rhythm, S1 normal heart sound, S2 normal heart sound and no murmurs GI normal to inspection, nondistended, normoactive bowel sounds Extremity normal to inspection Neuro Neuro Narrative: Patient is sedated on the ventilator Psych Psych Narrative: Patient is sedated and on the ventilator Assessment & Plan Assessment/Plan (1) Seizure: PLAN: Plan 1. Severe hyponatremia-etiology unknown at this time, nephrology will be seeing the patient today, labs will be monitored #2 acute hypoxic respiratory failure-patient is currently on the ventilator at this time, pulmonary medicine is participating in her care #3 seizure disorder-possibly secondary to hyponatremia, patient will be monitored, patient had a past history of seizures as documented in the medical record in 2016. #4 hypotension-etiology unclear, sepsis should be ruled out, again she is getting a central line inserted and will most likely be placed on pressors. #5 chronic obstructive pulmonary disease-complicates care, management, recovery, and prognosis #6 essential hypertension-patient's medications will be held due to hypotension Charges/Coding Visit Charges Inpatient E&M: 66342 Subs Hosp L2
[2022-03-26 08:42] LABS: International Normalized Ratio 1.1; Partial Thromboplast Time 31.2 Seconds (24.1-36.2)
--- NOTE | 2022-03-26 08:47 | NURSING ---
0634: This RN noticed irregularities in heart rhythm on telemetry. Upon further inspection, pt was found to be unresponsive with secretions coming out of mouth with SPO2 of 42%. Called for help, got suction, and positioned patient on her side. MD at bedside quickly after and prepared to STAT intubate. NRB applied and SPO2 was 100%. Medications given as ordered and pt intubated at 0648. Positive color change and bilateral lung sounds noted. Sedation initiated, restraints applied, hartley placed, OG placed.
--- NOTE | 2022-03-26 09:16 | PCM.CONS.R ---
Documented by User: COREY Pittman 03/26/22 09:38 Assessment & Plan Assessment/Plan (1) Hyponatremia: (2) Seizure: PLAN: Plan We were consulted for severe hypovolemic hyponatremia. Patient was seen by our group in February 2016 for hyperosmolar hyponatremia consistent with SIADH. In February 2016 serum Osmo 257, urine sodium 173, urine osmolality 512 and TSH was normal. During that hospitalization patient was also seen by neurology for seizure-like activity. During that hospitalization sodium reyes 119 and slowly improved to 131 by discharge. She has had low sodium in 2016 and 2016. Last lab work available to review from October 2016 sodium 124. Baseline sodium unknown. Current sodium is 107. Patient to receive one-time bolus 50 mL with 3% saline now and repeat sodium level in 1 hour. Goal serum sodium 111-112mmol/L after receiving 3% saline. Patient is at high risk of rapid over correction of serum sodium due to her history of alcohol abuse. Goal serum sodium to rise by no more than 6 mmol/L over the next 24 hours. We will order serial sodium checks every 2 hours for now. Patient was hypotensive this morning but was felt to be due to medications and intubation. If patient remains hypotensive patient could receive as needed normal saline 250 mL for volume expansion. If she develops rapid sodium correction then we will give DDAVP. Hopefully seizure-like activity will cease with improvement in sodium levels. We will check urine sodium, serum and urine osmolality. Reviewed with Dr. Ortega, further orders forthcoming as hospitalization evolves. HPI Consult Data Date of Consult: 03/26/22 HPI Narrative HPI Narrative: GUILLERMINA PARSONS, is a 77 F who presented to the emergency room via squad for weakness. Patient was found to have a sodium of 107, she was admitted to ICU, patient had seizure-like activity and currently patient is intubated. Information is gathered from the chart. Apparently patient had been feeling unwell for some time, was seen by her PCP, was told she was dehydrated and encouraged to drink more fluids. Patient has a past medical history for COPD, hypertension, hypothyroid, and alcohol abuse. We were consulted because of hyponatremia. Patient was seen by our group in February 2016 for hyperosmolar hyponatremia consistent with SIADH. Serum Osmo 257, urine sodium 173, urine osmolality 512 and TSH was normal. During that hospitalization patient was also seen by neurology for seizure-like activity. During that hospitalization sodium reyes 119 and improved to 131 by discharge. She has had low sodium in 2016 and 2017. Last lab work available to review from October 2016 sodium 124. [facility] Medical History Alcohol abuse COPD (chronic obstructive pulmonary disease) History of SIADH HTN (hypertension) Hypothyroid Seizure Tobacco use Home Medications levothyroxine 75 mcg tablet 75 mcg PO DAILY 03/12/16 [History Last Taken 03/12/16] lisinopril 20 mg tablet 40 mg PO DAILY 03/12/16 [History Last Taken 03/12/16] metoprolol tartrate 100 mg tablet 100 mg PO BID 03/12/16 [History Last Taken 03/12/16] amlodipine 5 mg tablet mg 03/25/22 [History Last Taken Unknown] omeprazole 20 mg tablet,delayed release 20 mg PO DAILY 03/25/22 [History Last Taken Unknown] Allergy/AdvReac Type Severity Reaction Status Date / Time Penicillins Allergy Unknown Verified 03/25/22 20:40 Family History (Updated 03/25/22 @ 23:[address] Allyssa Pang MD) Father Heart disease Hypertension Surgical History (Updated 03/25/22 @ 23:[address] Allyssa Pang MD) History of cataract surgery Social History (Updated 03/26/22 @ 01:[address] Allyssa Pang MD) Smoking Status: Current every day smoker tobacco type: cigarettes Smoking packs per day: 1 Smoking cigarettes per day: 20.0 alcohol intake: current alcohol intake frequency: 3 or more drinks per day details: Reports at least 2-4 beers daily. substance use type: does not use ROS ROS Narrative Unable to obtain Physical Exam Narrative On mechanical ventilator support, no apparent distress S1, S2, RRR Lung sounds clear anteriorly Abdomen soft, positive bowel sounds No edema Indwelling Larson with clear urine in bag Lab / Micro Data Result Diagrams: 03/26/22 05:50 03/26/22 05:50 Labs: Laboratory Results - last 24 hr 03/25/22 20:55: WBC 10.4, RBC 4.75, Hgb TNP, Hct 41.7, MCV 87.8, MCH TNP, MCHC TNP, RDW Std Deviation 38.8, RDW Coeff of Vlad 12.0, Plt Count 176, MPV 9.5, Immature Gran % (Auto) 1.100 H, Neut % (Auto) 85.8 H, Lymph % (Auto) 3.6 L, [place] % (Auto) 8.4, Eos % (Auto) 1.0, Baso % (Auto) 0.1, Absolute Neuts (auto) 9.0 H, Absolute Lymphs (auto) 0.38 L, Nucleated RBC % 0 03/25/22 20:55: Sodium 107 L*, Potassium 3.9, Chloride 69 L*, Carbon Dioxide 22.0, Anion Gap 16 H, BUN 11, Creatinine 0.83, Estim Creat Clear Calc 45.61, Est GFR (MDRD) Af Amer 86, Est GFR (MDRD) Non-Af 71, BUN/Creatinine Ratio 13.3, Glucose 102, Calcium 8.9, Total Bilirubin 1.00, AST 221 H, ALT 45, Alkaline Phosphatase 63, Total Protein 7.0, Albumin 3.6, Globulin 3.4, Albumin/Globulin Ratio 1.1 03/25/22 20:55: Phosphorus 2.3 L, Magnesium 1.9 03/25/22 23:00: Urine Color Yellow, Urine Clarity Clear, Urine pH 6.0, Ur Specific Ackerman 1.020, Urine Protein 30 H, Urine Glucose (UA) 50 H, Urine Ketones 150 A*, Urine Occult Blood 250 H, Urine Nitrite Negative, Urine Bilirubin Negative, Urine Urobilinogen 1 H, Ur Leukocyte Esterase 25 H, Urine RBC 0 SEEN, Urine WBC 0-5 SEEN, Ur Squamous Epith Cells 0 SEEN, Urine Bacteria 0 SEEN, Urine Mucus 0 SEEN 03/25/22 23:00: Urine Osmolality 447, Ur Random Sodium 86, Urine Creatinine 58.00 03/26/22 05:50: Sodium 107 L*, Potassium 3.7, Chloride 74 L*, Carbon Dioxide 22.0, Anion Gap 11, BUN 9, Creatinine 0.53 L, Estim Creat Clear Calc 37.85, Est GFR (MDRD) Af Amer 143, Est GFR (MDRD) Non-Af 118, BUN/Creatinine Ratio 16.9, Glucose 72 L, Calcium 7.9 L, Total Bilirubin 0.70, AST 197 H, ALT 44, Alkaline Phosphatase 51, Total Protein 5.9 L, Albumin 2.8 L, Globulin 3.1, Albumin/Globulin Ratio 0.9, TSH 1.15 03/26/22 07:35: PT 14.0, INR 1.1, APTT 31.2 ABG Data ABG results: ABG 03/26/22 07:33 Specimen Type ART Sample Site R Fem pH 7.35 Bicarbonate Actual 19.7 L Total CO2 21 Base Excess -6 L O2 Saturation 100 H O2 % 100 ABG pCO2 35.8 ABG pO2 481 H* Respiration Rate 14 O2 Delivery Device Adult Vent Tidal Volume 400 POC PEEP 5 Crit Call To/Read Back Yes Blood Gas Notified Whom brown Radiology Impression Chest X-Ray 03/26/22 06:48 IMPRESSION: Enteric tube extends below the diaphragm beyond the [id number]. Endotracheal tube terminates 3.5 cm above the . Electronically Signed: Jorge L Kovacs MD at 7:32 EST , Chest X-Ray 03/26/22 08:00 IMPRESSION: No acute pulmonary process Support lines and tubes as described, no complications Electronically Signed: Prince Morris MD at 8:31 EST , Documented by User: Dr. Ernst Ortega MD 03/26/22 10:47 Assessment & Plan Assessment/Plan (1) Hyponatremia: (2) Seizure: PLAN: Plan We were consulted for severe hypovolemic hyponatremia. Patient was seen by our group in February 2016 for hyperosmolar hyponatremia consistent with SIADH. In February 2016 serum Osmo 257, urine sodium 173, urine osmolality 512 and TSH was normal. During that hospitalization patient was also seen by neurology for seizure-like activity. During that hospitalization sodium reyes 119 and slowly improved to 131 by discharge. She has had low sodium in 2016 and 2017. Last lab work available to review from October 2016 sodium 124. Baseline sodium unknown. Current sodium is 107. Patient to receive one-time bolus 50 mL with 3% saline now and repeat sodium level in 1 hour. Goal serum sodium 111-112mmol/L after receiving 3% saline. Patient is at high risk of rapid over correction of serum sodium due to her history of alcohol abuse. Goal serum sodium to rise by no more than 6 mmol/L over the next 24 hours. We will order serial sodium checks every 2 hours for now. Patient was hypotensive this morning but was felt to be due to medications and intubation. If patient remains hypotensive patient could receive as needed normal saline 250 mL for volume expansion. If she develops rapid sodium correction then we will give DDAVP. Hopefully seizure-like activity will cease with improvement in sodium levels. We will check urine sodium, serum and urine osmolality. Reviewed with Dr. Ortega, further orders forthcoming as hospitalization evolves. Patient seen and examined, agree with note as outlined by TITLE I TEACHER above with the following input -Currently in the ICU intubated being followed for severe hyponatremia with seizure-like activity. On presentation sodium level 107 mmol/L -Given symptomatic hyponatremia with agree with 3% bolus of hyper tonic saline -Obtain CT scan of the head without contrast -Monitor I's and O's -Urinary indices consistent with increased ADH activity in the setting of increased water intake with poor solute intake -Goals would be to raise sodium level to about 111-112 mmol/L rapidly followed by a slower rise of 6 mmol/L over the next 24 hours -Continue with every 2 sodium check -Given hypotension and need for pressor support,We will also give small boluses of isotonic saline Thank you please call [phone] with any concerns HPI Consult Data Date of Consult: 03/26/22 [facility] Medical History Alcohol abuse COPD (chronic obstructive pulmonary disease) History of SIADH HTN (hypertension) Hypothyroid Seizure Tobacco use Home Medications levothyroxine 75 mcg tablet 75 mcg PO DAILY 03/12/16 [History Last Taken 03/12/16] lisinopril 20 mg tablet 40 mg PO DAILY 03/12/16 [History Last Taken 03/12/16] metoprolol tartrate 100 mg tablet 100 mg PO BID 03/12/16 [History Last Taken 03/12/16] amlodipine 5 mg tablet mg 03/25/22 [History Last Taken Unknown] omeprazole 20 mg tablet,delayed release 20 mg PO DAILY 03/25/22 [History Last Taken Unknown] Allergy/AdvReac Type Severity Reaction Status Date / Time Penicillins Allergy Unknown Verified 03/25/22 20:40 Family History (Updated 03/25/22 @ 23:[address] Allyssa Pang MD) Father Heart disease Hypertension Surgical History (Updated 03/25/22 @ 23:[address] Allyssa Pang MD) History of cataract surgery Social History (Updated 03/26/22 @ 01:[address] Allyssa Pang MD) Smoking Status: Current every day smoker tobacco type: cigarettes Smoking packs per day: 1 Smoking cigarettes per day: 20.0 alcohol intake: current alcohol intake frequency: 3 or more drinks per day details: Reports at least 2-4 beers daily. substance use type: does not use Lab / Micro Data Result Diagrams: 03/26/22 05:50 03/26/22 05:50
[2022-03-26 10:33] LABS: Osmolality, Serum 232 mOsm/KG (280-301); Osmolality, Urine 489 mOsm/KG
[2022-03-26 10:34] LABS: Hematocrit 41.8 % (37-47); Red Blood Count 4.72 M/mm3 (4.2-5.4); White Blood Count 8.6 K/mm3 (4.4-11.0)
[2022-03-26 10:35] LABS: Mean Corpuscular Volume 88.6 fL (81-99); Mean Platelet Vol. 9.3 fl (6.2-12.0); Platelet Count 181 K/mm3 (150-450); RBC Distribution Width CV 11.9 % (11.6-14.6); RBC Distribution Width SD 38.5 fl (35.1-43.9)
[2022-03-26 10:36] LABS: Neutrophil % 82.9 % (47-70)
[2022-03-26 10:37] LABS: Absolute Lymphocyte Count 0.48 X10^3/uL (0.83-4.51); Absolute Neutrophil Count 7.1 X10^3/uL (2.0-7.7); Basophil# 0.01 X10^3/uL; Basophil% 0.1 % (0-1); Eosinophil# 0.11 X10^3/uL; Eosinophils% 1.3 % (0-5); Lymphocyte # 0.48 X10^3/ul (0.83-4.51); Lymphocyte % 5.6 % (19-41); Monocyte% 9.4 % (0-10); Neutrophil # 7.09 X10^3/uL (2.7-7.7)
[2022-03-26 10:41] LABS: Anion Gap 12 (5-15); BUN 10 mg/dL (7-18); BUN/Creat Ratio 15.1 RATIO (10-20); Calcium,Total 8.1 mg/dL (8.5-10.1); Chloride 78 mmol/L (98-107); Creatinine, Serum 0.66 mg/dL (0.55-1.02); EST Glomerular Filtration Rate 92 mL/min (>60); Est Glom Filt Rate - Afr Amer 111 mL/min (>60); Estimated Creatinine Clearance 37.85 ml/min; Glucose 92 mg/dL (74-106); Potassium 3.6 mmol/L (3.5-5.1); Sodium Level 110 mmol/L (136-145); Triglycerides 72 mg/dL
--- NOTE | 2022-03-26 10:48 | CT_ITS ---
STUDY: CT BRAIN WITHOUT CONTRAST REASON FOR EXAM: Female, 77 years old. Severe hyponatremia RADIATION DOSAGE (If Supplied By Facility): CTDIvol = ( 44.99 ) mGy, DLP = ( 745.49 ) mGycm TECHNIQUE: Transaxial CT imaging of the brain was performed without administration of intravenous contrast material. Individualized dose optimization techniques were used for this CT. COMPARISON: MR brain from 11/16/2018 FINDINGS: Normal soft tissue structures. Normal calvarium. There is moderate cerebral atrophy with widening of the extra-axial spaces and ventricular dilatation. There are areas of decreased attenuation within the white matter tracts of the supratentorial brain, consistent with microvascular disease changes. Normal basal ganglia and thalami. Normal brainstem. There is mild cerebellar atrophy. There is no intracranial hemorrhage. There are no findings of an acute ischemic infarction. Normal visualized paranasal sinuses. CT/Brain/Head without Contrast IMPRESSION: Chronic involutional changes of the brain. No acute hemorrhage or significant interval change Electronically Signed: Prince Morris MD at 13:29 EST ,
[2022-03-26 10:51] LABS: CPK Total, Creatine Kinase 5808 U/L (26-192)
[2022-03-26] MEDS: Pantoprazole Sodium 20 MG Tablet PO (11:05)
[2022-03-26] MEDS: CHLORHEXIDINE GLUC 2% CLOTH 1 EACH TOWELETTE TOPICAL (11:05)
[2022-03-26] MEDS: Chlorhexidine 15 ML PO ×2 (11:05→20:01)
[2022-03-26] MEDS: Enoxaparin 40 MG/0.4 ML Syringe SC (11:05)
--- NOTE | 2022-03-26 12:24 | CHAPLAIN ---
Type of Pastoral Visit _x__ Initial Visit ___ Follow-up Visit ___ On-call Visit ___ General Patient Visit ___ Spiritual Assessment ___ Family Conference ___ Bereavement ___ Rapid Response ___ Code Blue ___ Other (describe below) Pastoral Care Referral From ___ Patient ___ Family ___ Nurse ___ Physician ___ Frame Tender ___ Skip Loader _x__ Other (describe below) Sacrament/Intervention ___ Active listening ___ Anointing ___ Advent ___ Bereavement ___ Communion ___ Yennifer exploration ___ ___ Life review _x__ Prayer ___ Reconciliation ___ Sacrament of Sick ___ Supportive presence ___ Wedding ___ Other (describe below) Pastoral Comments patient is intubated and family members are gone at this time; offered a prayer at bedside and left a calling card
[2022-03-26 12:36] LABS: Sodium Level 111 mmol/L (136-145)
[2022-03-26] MEDS: TITRATION PARAMETER CHANGE 1 EACH IV ×2 (12:57→17:24)
--- NOTE | 2022-03-26 13:54 | CASEMGMT ---
RN CM assessment deferred as patient is currently intubated. RN CM will attempt again at later time.
--- NOTE | 2022-03-26 14:24 | PCM.OP.BLANK ---
Operative Report Date of Procedure: 03/26/22 Central line placement procedure note Indication: IV access/hemodynamic instability/vasoactive medications Procedure: A time-out was completed to verify correct patient, indication, medication allergies, procedure, coagulation studies, informed consent signed, and equipment needed. The patient was placed in the supine position for a central line placement to the rt IJ vein. The patients rt neck was prepped using chlorhexidine and a full body sterile drape was applied. 1% lidocaine was used to anesthetize the surrounding skin. A 7fr 16 cm blue guard triple lumen catheter introduced into the internal jugular vein using the modified Seldinger technique with the assistance of ultrasound. The catheter was threaded smoothly over the guidewire, the guidewire was removed easily, nonpulsatile blood returned. All ports were aspirated of air and flushed with sterile saline. The catheter was sutured in place and covered with an occlusive dressing impregnated with chlorhexidine. Post-procedure: The patient tolerated the procedure well. Vital signs remained stable. EBL 3cc. No complications. Chest X Ray ordered to confirm tip placement and the absence of pneumothorax. Procedures Hospitalists Procedures: 87995 Insert Non-tunnel CV Cath
[2022-03-26 14:26] LABS: Sodium Level 113 mmol/L (136-145)
[2022-03-26 18:37] LABS: Sodium Level 113 mmol/L (136-145)
[2022-03-26 22:37] LABS: Sodium Level 113 mmol/L (136-145)
[2022-03-26 23:08] LABS: Anion Gap 12 (5-15); BUN 14 mg/dL (7-18); BUN/Creat Ratio 12.2 RATIO (10-20); Calcium,Total 7.8 mg/dL (8.5-10.1); Chloride 83 mmol/L (98-107); Creatinine, Serum 1.15 mg/dL (0.55-1.02); EST Glomerular Filtration Rate 49 mL/min (>60); Est Glom Filt Rate - Afr Amer 59 mL/min (>60); Estimated Creatinine Clearance 32.92 ml/min; Glucose 91 mg/dL (74-106); Potassium 3.3 mmol/L (3.5-5.1)
[2022-03-27] VITALS (61 sets, daily range): BP systolic 68–128; BP diastolic 39–106; PULSE 76–120; RESP 13–26; TEMP 36.8–38.2; O2SAT 91–100
[2022-03-27] MEDS: KCL 20MEQ in 0.9% NS 20 MEQ/1,000 ML IV.SOLN. 100 MEQ IV (00:19)
[2022-03-27 02:28] LABS: Anion Gap 14 (5-15); BUN 14 mg/dL (7-18); Calcium,Total 7.9 mg/dL (8.5-10.1); Chloride 85 mmol/L (98-107); Creatinine, Serum 1.08 mg/dL (0.55-1.02); EST Glomerular Filtration Rate 52 mL/min (>60); Est Glom Filt Rate - Afr Amer 63 mL/min (>60); Estimated Creatinine Clearance 35.05 ml/min; Glucose 94 mg/dL (74-106); Potassium 3.3 mmol/L (3.5-5.1); Sodium Level 116 mmol/L (136-145)
[2022-03-27] MEDS: 0.9% Saline Lock 10 ML Syringe IV (02:53)
[2022-03-27] MEDS: Levothyroxine 75 MCG Tablet PO (06:40)
[2022-03-27 06:45] LABS: Sodium Level 118 mmol/L (136-145)
--- NOTE | 2022-03-27 06:47 | PCM.PN.INT ---
Assessment & Plan Assessment/Plan (1) Hyponatremia: PLAN: Plan RECOMMENDATIONS: 1. Continue assist-control mode mechanical ventilation. Continue to wean FiO2 to maintain oxygen saturations at or above 90%. 2. Maintain seizure precautions and utilize as needed Ativan. 3. Cautious sodium correction per nephrology. 4. Continue propofol and fentanyl for sedation. 5. Continue to wean Levophed to maintain a mean arterial pressure at or above 65 mmHg. 6. Continue appropriate ICU prophylaxis. 7. Okay to initiate tube feeds today from my perspective. IMPRESSIONS: 1. Acute hypoxemic respiratory failure The patient was ultimately intubated after she developed hypoxemia after experiencing a seizure. There was no witnessed aspiration event. The patient was emergently intubated. Therefore, the patient will be continued on assist control mode of mechanical ventilation. FiO2 will be weaned for saturations greater than 90%. Continue current sedation regimen. 2. Significant hyponatremia and associated seizures Likely secondary to a combination of intravascular volume depletion and chronic alcohol dependency. 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 Plan to continue cautious correction of her underlying sodium derangement, per nephrology recommendations. Continue to monitor serial sodium levels as ordered. Maintain seizure precautions and as needed Ativan. CT head was unremarkable. 3. Shock Most likely secondary to the hemodynamic effects of the sedative medications being utilized to keep the patient comfortable while on the ventilator. Prior to intubation and initiation of sedative medications, the patient was hemodynamically stable. Plan to continue Levophed to maintain a mean arterial pressure at or above 65 mmHg. Recommend avoiding overzealous administration of normal saline, given cautious nature of sodium correction needed. 4. Chronic alcohol and tobacco dependency The patient does have a chronic alcohol and tobacco dependency, verified by family. She apparently takes in very little nutrition by home and drinks alcohol on a daily basis. The patient would likely benefit from nicotine replacement therapy while admitted to the hospital. She will need to be monitored closely for any evidence of refeeding syndrome, once tube feeding is initiated. 5. History of hypertension/hypothyroidism/GERD Complicates care, management, recovery and prognosis. Continue to hold home medications for now given tenuous hemodynamics. TIME: 33 minutes of critical care time, independent of procedures, was spent addressing the patient's acute hypoxemic respiratory failure, hyponatremia, seizures, shock, chronic alcohol and tobacco dependency, review of all data and collaboration with the care team. Subjective Subjective The patient was seen and examined at the bedside this morning. Events from the last 24 hours have been reviewed. The patient is currently hemodynamically stable on Levophed at 22 mcg/min. She remains on assist control mode of mechanical ventilation with an FiO2 requirement of 30%. No further seizure activity has been noted by the nursing staff. She is currently documented to be overall net +2.9 L for the hospitalization. Her sodium has increased to [address] yesterday only revealed chronic involutional changes of the brain. Objective Data Objective Data The patient's most recent lab work, culture data and imaging studies have all been personally reviewed. Blood, urine and sputum cultures are pending. Vital Signs: Vital Signs Temp Pulse Resp BP Pulse Ox O2 Del Method FiO2 99.0 F 84 14 115/40 L 98 Mechanical Ventilator 03/27/22 03:00 03/27/22 05:21 03/27/22 05:21 03/27/22 05:00 03/27/22 05:21 03/27/22 05:00 03/27/22 05:21 Oxygen Delivery Method Mechanical Ventilator Weight: 149 lb 14.629 oz Body Mass Index (BMI) 28.1 Intake & Output: Intake and Output for Last 24 Hours 03/25/22 03/26/22 03/27/22 23:59 23:59 23:59 Intake Total 1000 / 1000 1390.00 / 1434.80 889.26 / 889.26 Output Total 375 / 375 Balance 1000 / 1000 1015.00 / 1059.80 889.26 / 889.26 Lab / Micro Data Attestation: I reviewed the patient's lab results. Result Diagrams: 03/27/22 02:05 03/27/22 06:20 Labs: Laboratory Results - last 24 hr 03/26/22 05:50: Sodium 107 L*, Potassium 3.7, Chloride 74 L*, Carbon Dioxide 22.0, Anion Gap 11, BUN 9, Creatinine 0.53 L, Estim Creat Clear Calc 37.85, Est GFR (MDRD) Af Amer 143, Est GFR (MDRD) Non-Af 118, BUN/Creatinine Ratio 16.9, Glucose 72 L, Calcium 7.9 L, Total Bilirubin 0.70, AST 197 H, ALT 44, Alkaline Phosphatase 51, Total Protein 5.9 L, Albumin 2.8 L, Globulin 3.1, Albumin/Globulin Ratio 0.9, TSH 1.15 03/26/22 05:50: WBC 8.6, RBC 4.72, Hgb , Hct 41.8, MCV 88.6, MCH , MCHC , RDW Std Deviation 38.5, RDW Coeff of Vlad 11.9, Plt Count 181, MPV 9.3, Immature Gran % (Auto) 0.700, Neut % (Auto) 82.9 H, Lymph % (Auto) 5.6 L, [place] % (Auto) 9.4, Eos % (Auto) 1.3, Baso % (Auto) 0.1, Absolute Neuts (auto) 7.1, Absolute Lymphs (auto) 0.48 L 03/26/22 07:35: PT 14.0, INR 1.1, APTT 31.2 03/26/22 10:10: Sodium 110 L*, Potassium 3.6, Chloride 78 L, Carbon Dioxide 20.0 L, Anion Gap 12, BUN 10, Creatinine 0.66, Estim Creat Clear Calc 37.85, Est GFR (MDRD) Af Amer 111, Est GFR (MDRD) Non-Af 92, BUN/Creatinine Ratio 15.1, Glucose 92, Calcium 8.1 L, Triglycerides 72 03/26/22 10:10: Serum Osmolality 232 L 03/26/22 10:10: Total Creatine Kinase 5808 H 03/26/22 10:10: Sodium Cancelled 03/26/22 10:10: Urine Osmolality 489 03/26/22 12:10: Sodium 111 L* 03/26/22 14:07: Sodium 113 L* 03/26/22 17:58: Sodium 113 L* 03/26/22 22:05: Sodium 113 L*, Potassium 3.3 L, Chloride 83 L, Carbon Dioxide 18.0 L, Anion Gap 12, BUN 14, Creatinine 1.15 H, Estim Creat Clear Calc 32.92, Est GFR (MDRD) Af Amer 59 L, Est GFR (MDRD) Non-Af 49 L, BUN/Creatinine Ratio 12.2, Glucose 91, Calcium 7.8 L 03/27/22 02:05: Sodium 116 L*, Potassium 3.3 L, Chloride 85 L, Carbon Dioxide 17.0 L, Anion Gap 14, BUN 14, Creatinine 1.08 H, Estim Creat Clear Calc 35.05, Est GFR (MDRD) Af Amer 63, Est GFR (MDRD) Non-Af 52 L, BUN/Creatinine Ratio 13.0, Glucose 94, Calcium 7.9 L 03/27/22 06:20: Sodium 118 L* Micro: Microbiology 03/26/22 07:15 Sputum, Induced/Lukens Gram Stain - Final ABG Data ABG results: ABG 03/26/22 07:33 Specimen Type ART Sample Site R Fem pH 7.35 Bicarbonate Actual 19.7 L Total CO2 21 Base Excess -6 L O2 Saturation 100 H O2 % 100 ABG pCO2 35.8 ABG pO2 481 H* Respiration Rate 14 O2 Delivery Device Adult Vent Tidal Volume 400 POC PEEP 5 Crit Call To/Read Back Yes Blood Gas Notified Whom brown Radiography Diagnostic Testing: Radiology Impression Renal Ultrasound 03/26/22 05:55 IMPRESSION: Age consistent changes, no acute findings Electronically Signed: Prince Morris MD at 14:55 EST , Chest X-Ray 03/26/22 06:48 IMPRESSION: Enteric tube extends below the diaphragm beyond the [id number]. Endotracheal tube terminates 3.5 cm above the . Electronically Signed: Jorge L Kovacs MD at 7:32 EST , Chest X-Ray 03/26/22 08:00 IMPRESSION: No acute pulmonary process Support lines and tubes as described, no complications Electronically Signed: Prince Morris MD at 8:31 EST , Brain CT 03/26/22 10:48 IMPRESSION: Chronic involutional changes of the brain. No acute hemorrhage or significant interval change Electronically Signed: Prince Morris MD at 13:29 EST , Physical Exam Const no apparent distress General Appearance: intubated and patient mechanically ventilated HEENT normocephalic and head/scalp atraumatic Mouth: endotracheal tube in place and OG tube in place Eyes PERRL and EOMs intact bilaterally Neck supple General: trachea midline and CVC in place Chest inspection of chest normal Resp Auscultation: diminished lung sounds; Negative for rales, rhonchi or wheezes Cardio regular rate and regular rhythm GI normal to inspection, nondistended, normoactive bowel sounds Extremity no clubbing, cyanosis or edema Skin no rashes or lesions noted Neuro Sensorium / Orientation: sedated on vent Charges/Coding Procedures Hospitalists Procedures: [id number] Critial Care 1st Hr
[2022-03-27 07:03] LABS: Absolute Lymphocyte Count 0.86 X10^3/uL (0.83-4.51); Absolute Neutrophil Count 9.4 X10^3/uL (2.0-7.7); Basophil# 0.05 X10^3/uL; Basophil% 0.4 % (0-1); Eosinophil# 0.01 X10^3/uL; Eosinophils% 0.1 % (0-5); Hematocrit 42.3 % (37-47); Hemoglobin 15.2 g/dL (12.0-15.0); Lymphocyte # 0.86 X10^3/ul (0.83-4.51); Lymphocyte % 7.2 % (19-41); Mean Corp Hgb Conc 35.9 g/dL (32-36); Mean Corpuscular Hgb 33.3 pg (27.0-32.0); Mean Corpuscular Volume 92.8 fL (81-99); Mean Platelet Vol. 9.9 fl (6.2-12.0); Monocyte# 1.57 X10^3/uL; Monocyte% 13.1 % (0-10); NRBC Flagged by Analyzer 0 % (0-5); Neutrophil # 9.37 X10^3/uL (2.7-7.7); Neutrophil % 78.5 % (47-70); POSITIVE DIFFERENTIAL YES; Platelet Count 207 K/mm3 (150-450); RBC Distribution Width CV 12.6 % (11.6-14.6); RBC Distribution Width SD 43.2 fl (35.1-43.9); Red Blood Count 4.56 M/mm3 (4.2-5.4); White Blood Count 11.9 K/mm3 (4.4-11.0)
[2022-03-27 07:04] LABS: Differential Indicated SCAN CRITERIA MET
[2022-03-27 07:27] LABS: Troponin-I HS 168 pg/mL (3.0-54.0)
[2022-03-27 07:35] LABS: Differential Comment SCANNED
[2022-03-27] MEDS: TITRATION PARAMETER CHANGE 1 EACH IV ×2 (08:16→15:40)
[2022-03-27] MEDS: CHLORHEXIDINE GLUC 2% CLOTH 1 EACH TOWELETTE TOPICAL (08:16)
[2022-03-27] MEDS: Chlorhexidine 15 ML PO ×2 (08:31→21:29)
[2022-03-27] MEDS: Pantoprazole Sodium 20 MG Tablet PO (08:34)
[2022-03-27] MEDS: Potassium Chloride Oral Soln 20 MEQ/15 ML UDC 40 MEQ PO (08:34)
[2022-03-27] MEDS: Enoxaparin 40 MG/0.4 ML Syringe SC (09:20)
[2022-03-27] MEDS: Propofol 10MG/Ml 1,000 MG/100 ML Bottle 8.2 MG CONT INF ×2 (10:11→22:18)
--- NOTE | 2022-03-27 10:44 | PCM.PN.REN ---
Subjective Subjective She remains intubated Still on pressor support Urine output is improved Objective Data Objective Data Vital Signs: Vital Signs Temp Pulse Resp BP Pulse Ox O2 Del Method FiO2 99.3 F H 91 14 100/62 98 Mechanical Ventilator 30 03/27/22 08:00 03/27/22 10:03 03/27/22 10:03 03/27/22 09:30 03/27/22 10:03 03/27/22 08:00 03/27/22 10:03 Oxygen Delivery Method Mechanical Ventilator Weight: 68 kg Body Mass Index (BMI) 28.1 Intake & Output: Intake and Output for Last 24 Hours 03/25/22 03/26/22 03/27/22 23:59 23:59 23:59 Intake Total 1000 / 1000 1390.00 / 1434.80 1885.66 / 1885.66 Output Total 375 / 375 400 / 400 Balance 1000 / 1000 1015.00 / 1059.80 1485.66 / 1485.66 Lab / Micro Data Result Diagrams: 03/27/22 02:05 03/27/22 06:20 Labs: Laboratory Results - last 24 hr 03/26/22 10:10: Total Creatine Kinase 5808 H 03/26/22 12:10: Sodium 111 L* 03/26/22 14:07: Sodium 113 L* 03/26/22 17:58: Sodium 113 L* 03/26/22 22:05: Sodium 113 L*, Potassium 3.3 L, Chloride 83 L, Carbon Dioxide 18.0 L, Anion Gap 12, BUN 14, Creatinine 1.15 H, Estim Creat Clear Calc 32.92, Est GFR (MDRD) Af Amer 59 L, Est GFR (MDRD) Non-Af 49 L, BUN/Creatinine Ratio 12.2, Glucose 91, Calcium 7.8 L 03/27/22 02:05: Sodium 116 L*, Potassium 3.3 L, Chloride 85 L, Carbon Dioxide 17.0 L, Anion Gap 14, BUN 14, Creatinine 1.08 H, Estim Creat Clear Calc 35.05, Est GFR (MDRD) Af Amer 63, Est GFR (MDRD) Non-Af 52 L, BUN/Creatinine Ratio 13.0, Glucose 94, Calcium 7.9 L 03/27/22 02:05: WBC 11.9 H, RBC 4.56, Hgb 15.2 H, Hct 42.3, MCV 92.8, MCH 33.3 H, MCHC 35.9, RDW Std Deviation 43.2, RDW Coeff of Vlad 12.6, Plt Count 207, MPV 9.9, Immature Gran % (Auto) 0.700, Neut % (Auto) 78.5 H, Lymph % (Auto) 7.2 L, [place] % (Auto) 13.1 H, Eos % (Auto) 0.1, Baso % (Auto) 0.4, Absolute Neuts (auto) 9.4 H, Absolute Lymphs (auto) 0.86, Nucleated RBC % 0, Differential Comment SCANNED, Diff Path Review July03/27/22 06:20: Sodium 118 L* 03/27/22 06:20: Troponin I High Sens 168 H* Micro: Microbiology 03/26/22 07:15 Sputum, Induced/Lukens Gram Stain - Final Radiography Diagnostic Testing: Radiology Impression Renal Ultrasound 03/26/22 05:55 IMPRESSION: Age consistent changes, no acute findings Electronically Signed: Prince Morris MD at 14:55 EST , Brain CT 03/26/22 10:48 IMPRESSION: Chronic involutional changes of the brain. No acute hemorrhage or significant interval change Electronically Signed: Prince Morris MD at 13:29 EST , Physical Exam Narrative On mechanical ventilator support, no apparent distress S1, S2, RRR Lung sounds clear anteriorly Abdomen soft, positive bowel sounds No edema Indwelling [place] with clear urine in bag Assessment & Plan Assessment/Plan (1) Hyponatremia: (2) Seizure: PLAN: Plan Acute on chronic hyponatremia -Symptomatic evident by seizure-like activities -On presentation sodium level 107 mmol/L, status post 50 mL of 3% hypertonic bolus x1 -Currently sodium is at 118 mmol/L, this rise is appropriate given her seizure -Urine output is improved -Goal be to raise sodium level to about 122 mmol/L over next 24 hours -Continue IV fluids for now -Continue with BMP check every 4 hours -Replace potassium and phosphorus in addition to magnesium today Thank you please call [phone] with any concerns
[2022-03-27 10:51] LABS: Sodium Level 119 mmol/L (136-145)
[2022-03-27] MEDS: NEPRO TUBE FEED 1,000 ML 20 ML GT (13:26)
--- NOTE | 2022-03-27 13:50 | ECHOD_ITS ---
Reason For Study: DYSPNEA Procedure This was a 2D Doppler, Color Flow transthoracic echocardiogram. Technically difficult study due to patient becoming agitated and combative. The study was technically difficult. Exam performed portable in ICU/CCU. Left Ventricle Based upon the 2D echocardiographic images obtained there appears to be normal left ventricular size, wall motion, and systolic function. The estimated ejection fraction is 70 %. Unable to assess diastolic dysfunction. Right Ventricle Normal RV size. Normal systolic function. Atria Normal left atrium. Normal right atrium. No doppler evidence for ASD. Mitral Valve There is no mitral annular calcification. Mild focal mitral valve calcification of the anterior leaflet. Trivial mitral valve insufficiency. Tricuspid Valve Normal tricuspid valve. Trivial tricuspid valve insufficiency. Unable to estimate RV systolic pressure/pulmonary artery pressure due to technically difficult study. Aortic Valve Trisinus/trileaflet aortic valve. Moderate focal aortic valve calcification. Mild aortic stenosis. Pulmonic Valve The pulmonic valve is not well visualized. Great Vessels The aortic root is not well visualized. Pericardium/Pleural No pericardial effusion. MMode/2D Measurements & Calculations LVIDd: 4.1 cm IVSd: 1.1 cm LVIDs: 2.2 cm LVPWd: 0.93 cm FS: 45.9 % Time Measurements MV dec time: 0.16 sec Doppler Measurements & Calculations MV E max cory: 100.4 cm/sec Ao V2 max: 232.1 cm/sec MV A max cory: 105.1 cm/sec MV dec slope: 619.1 cm/sec2 Ao max P.6 mmHg MV E/A: 0.96 Ao V2 mean: 171.1 cm/sec Ao mean P.7 mmHg Ao V2 VTI: 33.0 cm AV (velocity ratio): 0.59 LV V1 max: 140.4 cm/sec PA V2 max: 167.3 cm/sec LV V1 max P.9 mmHg PA V2 mean: 130.7 cm/sec LV V1 mean P.1 mmHg LV V1 mean: 93.3 cm/sec LV V1 VTI: 19.6 cm ECHO/Echo Complete Interpretation Summary The study was technically difficult. Based upon the 2D echocardiographic images obtained there appears to be normal left ventricular size, wall motion, and systolic function. The estimated ejection fraction is 70 %. Mild focal mitral valve calcification of the anterior leaflet. Trivial mitral valve insufficiency. Trivial tricuspid valve insufficiency. Moderate focal aortic valve calcification. Mild aortic stenosis. Unable to estimate RV systolic pressure/pulmonary artery pressure due to techni polo difficult study. Unable to assess diastolic dysfunction. Ordering Physician: Michael Lindsey Referring Physician: LAMBERT ABBOTT Performed By: Aleyda Crook RCS
--- NOTE | 2022-03-27 13:56 | CASEMGMT ---
RN CM NOTE: Pt remains intubated. RN CM assessment deferred at this time. Reanna LUCASN RN CM
[2022-03-27 14:14] LABS: Anion Gap 10 (5-15); BUN 12 mg/dL (7-18); BUN/Creat Ratio 11.9 RATIO (10-20); Calcium,Total 8.1 mg/dL (8.5-10.1); Chloride 95 mmol/L (98-107); Creatinine, Serum 1.01 mg/dL (0.55-1.02); EST Glomerular Filtration Rate 57 mL/min (>60); Est Glom Filt Rate - Afr Amer 69 mL/min (>60); Estimated Creatinine Clearance 37.48 ml/min; Glucose 101 mg/dL (74-106); Potassium 5.1 mmol/L (3.5-5.1); Sodium Level 121 mmol/L (136-145)
[2022-03-27 15:24] LABS: Troponin-I HS 220 pg/mL (3.0-54.0)
[2022-03-27] MEDS: Acetaminophen 650 MG/20 ML UDC GT (17:23)
--- NOTE | 2022-03-27 17:29 | PN.HOSP_ITS ---
Subjective Subjective Patient was seen and examined today, she remains on the ventilator at this time under sedation, patient is receiving IV pressor therapy. Sodium was 121 today. Objective Data Objective Data Vital Signs: Vital Signs Temp Pulse Resp BP Pulse Ox O2 Del Method FiO2 100.5 F H 104 H 14 102/49 L 91 Mechanical Ventilator 30 03/27/22 16:00 03/27/22 16:44 03/27/22 16:44 03/27/22 16:00 03/27/22 16:44 03/27/22 16:00 03/27/22 16:44 Oxygen Delivery Method Mechanical Ventilator Weight: 68 kg Body Mass Index (BMI) 28.1 Intake & Output: Intake and Output for Last 24 Hours 03/25/22 03/26/22 03/27/22 23:59 23:59 23:59 Intake Total 1000 / 1000 1390.00 / 1434.80 2850.45 / 2850.45 Output Total 375 / 375 750 / 750 Balance 1000 / 1000 1015.00 / 1059.80 2100.45 / 2100.45 Lab / Micro Data Result Diagrams: 03/27/22 02:05 03/27/22 13:55 Labs: Laboratory Results - last 24 hr 03/26/22 17:58: Sodium 113 L* 03/26/22 22:05: Sodium 113 L*, Potassium 3.3 L, Chloride 83 L, Carbon Dioxide 18.0 L, Anion Gap 12, BUN 14, Creatinine 1.15 H, Estim Creat Clear Calc 32.92, E st GFR (MDRD) Af Amer 59 L, Est GFR (MDRD) Non-Af 49 L, BUN/Creatinine Ratio 12.2, Glucose 91, Calcium 7.8 L 03/27/22 02:05: Sodium 116 L*, Potassium 3.3 L, Chloride 85 L, Carbon Dioxide 17.0 L, Anion Gap 14, BUN 14, Creatinine 1.08 H, Estim Creat Clear Calc 35.05, Est GFR (MDRD) Af Amer 63, Est GFR (MDRD) Non-Af 52 L, BUN/Creatinine Ratio 13.0, Glucose 94, Calcium 7.9 L 03/27/22 02:05: WBC 11.9 H, RBC 4.56, Hgb 15.2 H, Hct 42.3, MCV 92.8, MCH 33.3 H , MCHC 35.9, RDW Std Deviation 43.2, RDW Coeff of Vlad 12.6, Plt Count 207, MPV 9.9, Immature Gran % (Auto) 0.700, Neut % (Auto) 78.5 H, Lymph % (Auto) 7.2 L, [place] % (Auto) 13.1 H, Eos % (Auto) 0.1, Baso % (Auto) 0.4, Absolute Neuts (auto) 9.4 H, Absolute Lymphs (auto) 0.86, Nucleated RBC % 0, Differential Comment SCANNED, Diff Path Review July03/27/22 06:20: Sodium 118 L* 03/27/22 06:20: Troponin I High Sens 168 H* 03/27/22 10:30: Sodium 119 L* 03/27/22 13:55: Sodium 121 L, Potassium 5.1, Chloride 95 L, Carbon Dioxide 16.0 L, Anion Gap 10, BUN 12, Creatinine 1.01, Estim Creat Clear Calc 37.48, Est GFR (MDRD) Af Amer 69, Est GFR (MDRD) Non-Af 57 L, BUN/Creatinine Ratio 11.9, Glucose 101, Calcium 8.1 L 03/27/22 13:55: Troponin I High Sens 220 H* Micro: Microbiology 03/26/22 07:15 Sputum, Induced/Lukens Gram Stain - Final 03/26/22 07:15 Sputum, Induced/Lukens Respiratory Culture - Preliminary Yeast Like Organism Radiography Diagnostic Testing: Radiology Impression Echocardiogram 03/27/22 13:50 Interpretation Summary The study was technically difficult. Based upon the 2D echocardiographic images obtained there appears to be normal left ventricular size, wall motion, and systolic function. The estimated ejection fraction is 70 %. Mild focal mitral valve calcification of the anterior leaflet. Trivial mitral valve insufficiency. Trivial tricuspid valve insufficiency. Moderate focal aortic valve calcification. Mild aortic stenosis. Unable to estimate RV systolic pressure/pulmonary artery pressure due to technically difficult study. Unable to assess diastolic dysfunction. Ordering Physician: Michael Lindsey Referring Physician: LAMBERT ABBOTT Performed By: Aleyda Crook RCS Physical Exam Narrative Constitutional Narrative: Patient is sedated and on the ventilator HEENT head/scalp atraumatic Neck no JVD Resp normal respiratory effort, no retractions and clear to auscultation bilaterally Resp Narrative: Patient is on the ventilator at this time Cardio regular rate, regular rhythm, S1 normal heart sound, S2 normal heart sound and no murmurs GI normal to inspection, nondistended, normoactive bowel sounds Extremity normal to inspection Neuro Neuro Narrative: Patient is sedated on the ventilator Psych Psych Narrative: Patient is sedated and on the ventilator Assessment & Plan Assessment/Plan (1) Hyponatremia: (2) Seizure: PLAN: Plan 1. Severe hyponatremia-etiology unknown at this time, patient's sodium is improved, she is currently being seen by nephrology #2 acute hypoxic respiratory failure-patient is currently on the ventilator at this time, pulmonary medicine is participating in her care #3 seizure disorder-possibly secondary to hyponatremia, patient will be monitored, patient had a past history of seizures as documented in the medical record in 2016. #4 hypotension-etiology unclear, sepsis should be ruled out, patient is cur rently on IV pressors #5 chronic obstructive pulmonary disease-complicates care, management, recovery, and prognosis #6 essential hypertension-patient's medications will be held due to hypotension Charges/Coding Visit Charges Inpatient E&M: 27519 Subs Hosp L2
[2022-03-27 18:01] LABS: Anion Gap 12 (5-15); BUN 12 mg/dL (7-18); BUN/Creat Ratio 11.4 RATIO (10-20); Chloride 95 mmol/L (98-107); Creatinine, Serum 1.05 mg/dL (0.55-1.02); EST Glomerular Filtration Rate 54 mL/min (>60); Est Glom Filt Rate - Afr Amer 66 mL/min (>60); Estimated Creatinine Clearance 36.05 ml/min; Glucose 114 mg/dL (74-106); Potassium 4.7 mmol/L (3.5-5.1); Sodium Level 122 mmol/L (136-145)
--- NOTE | 2022-03-27 18:05 | RAD_ITS ---
INDICATION: Elevated temperature EXAMINATION/TECHNIQUE: X-RAY - XR Chest 1 View COMPARISON: 03/26/2022 RAD/Chest 1 View (Portable) IMPRESSION: The heart and lungs appear clear. Endotracheal tube, right IJ central catheter, and enteric tube remain. Electronically Signed: Kaiden Carmona MD at 19:14 EST ,
[2022-03-27] MEDS: 0.45% Normal Saline 1,000 ML 70 ML IV (19:11)
[2022-03-27 22:38] LABS: Anion Gap 9 (5-15); BUN 11 mg/dL (7-18); BUN/Creat Ratio 11.1 RATIO (10-20); Calcium,Total 8.1 mg/dL (8.5-10.1); Chloride 98 mmol/L (98-107); Creatinine, Serum 0.99 mg/dL (0.55-1.02); EST Glomerular Filtration Rate 58 mL/min (>60); Est Glom Filt Rate - Afr Amer 70 mL/min (>60); Estimated Creatinine Clearance 38.24 ml/min; Glucose 134 mg/dL (74-106); Potassium 4.3 mmol/L (3.5-5.1); Sodium Level 123 mmol/L (136-145)
[2022-03-28] VITALS (72 sets, daily range): BP systolic 79–180; BP diastolic 41–63; PULSE 72–150; RESP 14–27; TEMP 36.9–38.9; O2SAT 90–98
[2022-03-28] MEDS: Albuterol 2.5 MG/3 ML VIAL.NEB. INHALATION (02:16)
[2022-03-28 02:32] LABS: Anion Gap 11 (5-15); BUN 11 mg/dL (7-18); BUN/Creat Ratio 12.7 RATIO (10-20); Calcium,Total 8.2 mg/dL (8.5-10.1); Chloride 97 mmol/L (98-107); Creatinine, Serum 0.87 mg/dL (0.55-1.02); EST Glomerular Filtration Rate 67 mL/min (>60); Est Glom Filt Rate - Afr Amer 82 mL/min (>60); Estimated Creatinine Clearance 43.51 ml/min; Glucose 138 mg/dL (74-106); Potassium 4.1 mmol/L (3.5-5.1); Sodium Level 124 mmol/L (136-145)
[2022-03-28 04:08] LABS: Absolute Lymphocyte Count 0.21 X10^3/uL (0.83-4.51); Absolute Neutrophil Count 7.1 X10^3/uL (2.0-7.7); Basophil# 0.01 X10^3/uL; Basophil% 0.1 % (0-1); Eosinophil# 0.01 X10^3/uL; Eosinophils% 0.1 % (0-5); Hematocrit 36.7 % (37-47); Hemoglobin 13.6 g/dL (12.0-15.0); Lymphocyte # 0.21 X10^3/ul (0.83-4.51); Lymphocyte % 2.5 % (19-41); Mean Corp Hgb Conc 37.1 g/dL (32-36); Mean Corpuscular Hgb 34.9 pg (27.0-32.0); Mean Corpuscular Volume 94.1 fL (81-99); Monocyte# 1.16 X10^3/uL; Monocyte% 13.6 % (0-10); NRBC Flagged by Analyzer 0 % (0-5); Neutrophil % 83.5 % (47-70); POSITIVE DIFFERENTIAL YES; Platelet Count 155 K/mm3 (150-450); RBC Distribution Width CV 13.4 % (11.6-14.6); RBC Distribution Width SD 46.4 fl (35.1-43.9); White Blood Count 8.5 K/mm3 (4.4-11.0)
[2022-03-28 04:31] LABS: Differential Indicated SCAN CRITERIA MET
[2022-03-28 04:32] LABS: Anion Gap 10 (5-15); BUN 10 mg/dL (7-18); BUN/Creat Ratio 12.6 RATIO (10-20); Calcium,Total 7.9 mg/dL (8.5-10.1); Chloride 96 mmol/L (98-107); Creatinine, Serum 0.79 mg/dL (0.55-1.02); EST Glomerular Filtration Rate 75 mL/min (>60); Est Glom Filt Rate - Afr Amer 91 mL/min (>60); Estimated Creatinine Clearance 37.85 ml/min; Glucose 145 mg/dL (74-106); Magnesium 2.3 mg/dL (1.6-2.6); Phosphorus 2.2 mg/dL (2.5-4.9); Sodium Level 123 mmol/L (136-145)
[2022-03-28 04:35] LABS: Differential Comment SCANNED
[2022-03-28] MEDS: Levothyroxine 75 MCG Tablet GT (04:51)
--- NOTE | 2022-03-28 06:42 | PN.CC_ITS ---
Assessment & Plan Assessment/Plan (1) Hyponatremia: PLAN: Plan RECOMMENDATIONS: 1. Continue assist-control mode mechanical ventilation. Continue to wean FiO2 to maintain oxygen saturations at or above 90%. 2. Maintain seizure precautions and utilize as needed Ativan. 3. Cautious sodium correction per nephrology. 4. Continue propofol and fentanyl for sedation. Possibly transition to Precedex when closer to extubation 5. Continue to wean Levophed to maintain a mean arterial pressure at or above 65 mmHg. 6. Continue appropriate ICU prophylaxis. 7. Okay to advance tube feeds today as tolerated. IMPRESSIONS: 1. Acute hypoxemic respiratory failure The patient was ultimately intubated after she developed hypoxemia after experiencing a seizure. There was no witnessed aspiration event. The patient was emergently intubated. Therefore, the patient will be continued on assist control mode of mechanical ventilation. FiO2 will be weaned for saturations greater than 90%. Continue current sedation regimen. Hold on trials given high pressor requirements at this time. 2. Significant hyponatremia and associated seizures Likely secondary to a combination of intravascular volume depletion and chronic alcohol dependency. 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 Plan to continue cautious correction of her underlying sodium derangement, per nephrology recommendations. Continue to monitor serial sodium levels as ordered. Maintain seizure precautions and as needed Ativan. CT head was unremarkable. 3. Shock Slowly improving. Most likely secondary to the hemodynamic effects of the sedative medications being utilized to keep the patient comfortable while on the ventilator. Prior to intubation and initiation of sedative medications, the patient was hemodynamically stable. Plan to continue Levophed to maintain a m daly arterial pressure at or above 65 mmHg. 4. Chronic alcohol and tobacco dependency/possible DTs The patient does have a chronic alcohol and tobacco dependency, verified by family. She apparently takes in very little nutrition by home and drinks alcohol on a daily basis. Seizures could have been secondary to hyponatremia or withdrawal. The patient would likely benefit from nicotine replacement therapy while admitted to the hospital. She will need to be monitored closely for any evidence of refeeding syndrome. Okay to continue with tube feeds to goal. 5. History of hypertension/hypothyroidism/GERD Complicates care, management, recovery and prognosis. Continue to hold home medications for now given tenuous hemodynamics. TIME: 35 minutes of critical care time, independent of procedures, was spent addressing the patient's acute hypoxemic respiratory failure, hyponatremia, seizures, shock, chronic alcohol and tobacco dependency, review of all data and collaboration with the care team. Subjective Subjective Patient did okay overnight. Patient has been able to be taken off of vasopressin, but still has significant levo demands. Patient did have a fever overnight. No significant secretions have been reported. Objective Data Objective Data Vital Signs: Vital Signs Temp Pulse Resp BP Pulse Ox O2 Del Method FiO2 37.8 C H 104 H 14 114/54 L 95 Mechanical Ventilator 30 03/28/22 06:00 03/28/22 06:00 03/28/22 06:00 03/28/22 06:00 03/28/22 06:00 03/28/22 06:00 03/28/22 06:00 Oxygen Delivery Method Mechanical Ventilator Weight: 68.8 kg Body Mass Index (BMI) 28.1 Intake & Output: Intake and Output for Last 24 Hours 03/26/22 03/27/22 03/28/22 23:59 23:59 23:59 Intake Total 1390.00 / 1434.80 3751.44 / 4176.44 1610.43 / 1610.43 Output Total 375 / 375 1150 / 1730 980 / 980 Balance 1015.00 / 1059.80 2601.44 / 2446.44 630.43 / 630.43 Lab / Micro Data Attestation: I reviewed the patient's lab results. Result Diagrams: 03/28/22 04:00 03/28/22 04:00 Labs: Laboratory Results - last 24 hr 03/27/22 02:05: WBC 11.9 H, RBC 4.56, Hgb 15.2 H, Hct 42.3, MCV 92.8, MCH 33.3 H , MCHC 35.9, RDW Std Deviation 43.2, RDW Coeff of Vlad 12.6, Plt Count 207, MPV 9.9, Immature Gran % (Auto) 0.700, Neut % (Auto) 78.5 H, Lymph % (Auto) 7.2 L, [place] % (Auto) 13.1 H, Eos % (Auto) 0.1, Baso % (Auto) 0.4, Absolute Neuts (auto) 9.4 H, Absolute Lymphs (auto) 0.86, Nucleated RBC % 0, Differential Comment SCANNED, Diff Path Review July03/27/22 06:20: Sodium 118 L* 03/27/22 06:20: Troponin I High Sens 168 H* 03/27/22 10:30: Sodium 119 L* 03/27/22 13:55: Sodium 121 L, Potassium 5.1, Chloride 95 L, Carbon Dioxide 16.0 L, Anion Gap 10, BUN 12, Creatinine 1.01, Estim Creat Clear Calc 37.48, Est GFR (MDRD) Af Amer 69, Est GFR (MDRD) Non-Af 57 L, BUN/Creatinine Ratio 11.9, Glucose 101, Calcium 8.1 L 03/27/22 13:55: Troponin I High Sens 220 H* 03/27/22 17:40: Sodium 122 L, Potassium 4.7, Chloride 95 L, Carbon Dioxide 15.0 L, Anion Gap 12, BUN 12, Creatinine 1.05 H, Estim Creat Clear Calc 36.05, Est G FR (MDRD) Af Amer 66, Est GFR (MDRD) Non-Af 54 L, BUN/Creatinine Ratio 11.4, Glucose 114 H, Calcium 8.0 L 03/27/22 21:55: Sodium 123 L, Potassium 4.3, Chloride 98, Carbon Dioxide 16.0 L, Anion Gap 9, BUN 11, Creatinine 0.99, Estim Creat Clear Calc 38.24, Est GFR (MDRD) Af Amer 70, Est GFR (MDRD) Non-Af 58 L, BUN/Creatinine Ratio 11.1, Glucose 134 H, Calcium 8.1 L 03/28/22 02:08: Sodium 124 L, Potassium 4.1, Chloride 97 L, Carbon Dioxide 16.0 L, Anion Gap 11, BUN 11, Creatinine 0.87, Estim Creat Clear Calc 43.51, Est GFR (MDRD) Af Amer 82, Est GFR (MDRD) Non-Af 67, BUN/Creatinine Ratio 12.7, Glucose 138 H, Calcium 8.2 L 03/28/22 04:00: Sodium 123 L, Potassium 4.0, Chloride 96 L, Carbon Dioxide 17.0 L, Anion Gap 10, BUN 10, Creatinine 0.79, Estim Creat Clear Calc 37.85, Est GFR (MDRD) Af Amer 91, Est GFR (MDRD) Non-Af 75, BUN/Creatinine Ratio 12.6, Glucose 145 H, Calcium 7.9 L, Phosphorus 2.2 L, Magnesium 2.3 12/31/22 04:00: WBC 8.5, RBC 3.90 L, Hgb 13.6, Hct 36.7 L, MCV 94.1, MCH 34.9 H, MCHC 37.1 H, RDW Std Deviation 46.4 H, RDW Coeff of Vlad 13.4, Plt Count 155, MPV 9.0, Immature Gran % (Auto) 0.200, Neut % (Auto) 83.5 H, Lymph % (Auto) 2.5 L, [place] % (Auto) 13.6 H, Eos % (Auto) 0.1, Baso % (Auto) 0.1, Absolute Neuts (auto) 7.1, Absolute Lymphs (auto) 0.21 L, Nucleated RBC % 0, Differential Comment SCANNED Micro: Microbiology 03/26/22 07:15 Sputum, Induced/Lukens Gram Stain - Final 03/26/22 07:15 Sputum, Induced/Lukens Respiratory Culture - Preliminary Yeast Like Organism Radiography Diagnostic Testing: Radiology Impression Echocardiogram 03/27/22 13:50 Interpretation Summary The study was technically difficult. Based upon the 2D echocardiographic images obtained there appears to be normal left ventricular size, wall motion, and systolic function. The estimated ejection fraction is 70 %. Mild focal mitral valve calcification of the anterior leaflet. Trivial mitral valve insufficiency. Trivial tricuspid valve insufficiency. Moderate focal aortic valve calcification. Mild aortic stenosis. Unable to estimate RV systolic pressure/pulmonary artery pressure due to technically difficult study. Unable to assess diastolic dysfunction. Ordering Physician: Michael Lindsey Referring Physician: LAMBERT ABBOTT Performed By: Aleyda Crook RCS Chest X-Ray 03/27/22 18:05 IMPRESSION: The heart and lungs appear clear. Endotracheal tube, right IJ central catheter, and enteric tube remain. Electronically Signed: Kaiden Carmona MD at 19:14 EST , Physical Exam Const no apparent distress General Appearance: intubated and patient mechanically ventilated HEENT normocephalic and head/scalp atraumatic Eyes PERRL and EOMs intact bilaterally Neck supple Neck Narrative: Right IJ clean, dry and intact. General: trachea midline and CVC in place Chest inspection of chest normal Resp Auscultation: diminished lung sounds; Negative for rales, rhonchi or wheezes Cardio regular rhythm, S1 normal heart sound, S2 normal heart sound, no murmurs, no rub and no gallops Rate: tachycardic GI normal to inspection, nondistended, normoactive bowel sounds Extremity no clubbing, cyanosis or edema Skin no rashes or lesions noted Neuro Sensorium / Orientation: sedated on vent Psych Mood & Affect: flat affect Charges/Coding Procedures Hospitalists Procedures: 26646 Critial Care 1st Hr
[2022-03-28] MEDS: Acetaminophen 650 MG/20 ML UDC GT ×2 (07:08→18:44)
[2022-03-28] MEDS: Enoxaparin 40 MG/0.4 ML Syringe SC (09:34)
[2022-03-28] MEDS: TITRATION PARAMETER CHANGE 1 EACH IV ×2 (09:43→11:58)
[2022-03-28] MEDS: CHLORHEXIDINE GLUC 2% CLOTH 1 EACH TOWELETTE TOPICAL (09:44)
[2022-03-28] MEDS: Lansoprazole 15 MG Capsule.DR GT (09:51)
[2022-03-28] MEDS: Chlorhexidine 15 ML PO ×2 (09:52→22:04)
[2022-03-28 10:51] LABS: Anion Gap 8 (5-15); BUN 10 mg/dL (7-18); BUN/Creat Ratio 15.3 RATIO (10-20); Calcium,Total 7.9 mg/dL (8.5-10.1); Chloride 96 mmol/L (98-107); Creatinine, Serum 0.66 mg/dL (0.55-1.02); EST Glomerular Filtration Rate 93 mL/min (>60); Est Glom Filt Rate - Afr Amer 113 mL/min (>60); Estimated Creatinine Clearance 37.85 ml/min; Glucose 166 mg/dL (74-106); Potassium 3.9 mmol/L (3.5-5.1); Sodium Level 123 mmol/L (136-145)
[2022-03-28] MEDS: Propofol 10MG/Ml 1,000 MG/100 ML Bottle 8.2 MG CONT INF (11:58)
[2022-03-28] MEDS: NEPRO TUBE FEED 1,000 ML 40 ML GT (12:16)
--- NOTE | 2022-03-28 13:11 | PN.HOSP_ITS ---
Subjective Subjective Patient was seen and examined today, she remains sedated and on the ventilator. She is currently also on pressor agents which you are being weaned as tolerated. Objective Data Objective Data Vital Signs: Vital Signs Temp Pulse Resp BP Pulse Ox O2 Del Method FiO2 100.2 F H 90 14 117/54 L 94 Mechanical Ventilator 30 03/28/22 07:00 03/28/22 10:36 03/28/22 10:36 03/28/22 07:00 03/28/22 10:36 03/28/22 07:00 03/28/22 10:36 Oxygen Delivery Method Mechanical Ventilator Weight: 68.8 kg Body Mass Index (BMI) 28.1 Intake & Output: Intake and Output for Last 24 Hours 03/26/22 03/27/22 03/28/22 23:59 23:59 23:59 Intake Total 1390.00 / 1434.80 3751.44 / 4176.44 2670.62 / 2670.62 Output Total 375 / 375 1150 / 1730 1680 / 1680 Balance 1015.00 / 1059.80 2601.44 / 2446.44 990.62 / 990.62 Lab / Micro Data Result Diagrams: 03/28/22 04:00 03/28/22 10:00 Labs: Laboratory Results - last 24 hr 03/27/22 13:55: Sodium 121 L, Potassium 5.1, Chloride 95 L, Carbon Dioxide 16.0 L, Anion Gap 10, BUN 12, Creatinine 1.01, Estim Creat Clear Calc 37.48, Est GFR (MDRD) Af Amer 69, Est GFR (MDRD) Non-Af 57 L, BUN/Creatinine Ratio 11.9, Glucose 101, Calcium 8.1 L 03/27/22 13:55: Troponin I High Sens 220 H* 03/27/22 17:40: Sodium 122 L, Potassium 4.7, Chloride 95 L, Carbon Dioxide 15.0 L, Anion Gap 12, BUN 12, Creatinine 1.05 H, Estim Creat Clear Calc 36.05, Est GFR (MDRD) Af Amer 66, Est GFR (MDRD) Non-Af 54 L, BUN/Creatinine Ratio 11.4, Glucose 114 H, Calcium 8.0 L 03/27/22 21:55: Sodium 123 L, Potassium 4.3, Chloride 98, Carbon Dioxide 16.0 L, Anion Gap 9, BUN 11, Creatinine 0.99, Estim Creat Clear Calc 38.24, Est GFR (MDRD) Af Amer 70, Est GFR (MDRD) Non-Af 58 L, BUN/Creatinine Ratio 11.1, Glucose 134 H, Calcium 8.1 L 03/28/22 02:08: Sodium 124 L, Potassium 4.1, Chloride 97 L, Carbon Dioxide 16.0 L, Anion Gap 11, BUN 11, Creatinine 0.87, Estim Creat Clear Calc 43.51, Est GFR (MDRD) Af Amer 82, Est GFR (MDRD) Non-Af 67, BUN/Creatinine Ratio 12.7, Glucose 138 H, Calcium 8.2 L 03/28/22 04:00: Sodium 123 L, Potassium 4.0, Chloride 96 L, Carbon Dioxide 17.0 L, Anion Gap 10, BUN 10, Creatinine 0.79, Estim Creat Clear Calc 37.85, Est GFR (MDRD) Af Amer 91, Est GFR (MDRD) Non-Af 75, BUN/Creatinine Ratio 12.6, Glucose 145 H, Calcium 7.9 L, Phosphorus 2.2 L, Magnesium 2.3 03/28/22 04:00: WBC 8.5, RBC 3.90 L, Hgb 13.6, Hct 36.7 L, MCV 94.1, MCH 34.9 H, MCHC 37.1 H, RDW Std Deviation 46.4 H, RDW Coeff of Vlad 13.4, Plt Count 155, MPV 9.0, Immature Gran % (Auto) 0.200, Neut % (Auto) 83.5 H, Lymph % (Auto) 2.5 L, Thayer % (Auto) 13.6 H, Eos % (Auto) 0.1, Baso % (Auto) 0.1, Absolute Neuts (auto) 7.1, Absolute Lymphs (auto) 0.21 L, Nucleated RBC % 0, Differential Comment SCANNED 03/28/22 10:00: Sodium 123 L, Potassium 3.9, Chloride 96 L, Carbon Dioxide 19.0 L, Anion Gap 8, BUN 10, Creatinine 0.66, Estim Creat Clear Calc 37.85, Est GFR (MDRD) Af Amer 113, Est GFR (MDRD) Non-Af 93, BUN/Creatinine Ratio 15.3, Glucose 166 H, Calcium 7.9 L Micro: Microbiology 03/27/22 07:35 Urine Catheter - Catheter Urine Culture - Preliminary Culture exhibits no growth. 03/26/22 07:15 Sputum, Induced/Lukens Gram Stain - Final 03/26/22 07:15 Sputum, Induced/Lukens Respiratory Culture - Final Presumptive C albicans Radiography Diagnostic Testing: Radiology Impression Echocardiogram 03/27/22 13:50 Interpretation Summary The study was technically difficult. Based upon the 2D echocardiographic images obtained there appears to be normal left ventricular size, wall motion, and systolic function. The estimated ejection fraction is 70 %. Mild focal mitral valve calcification of the anterior leaflet. Trivial mitral valve insufficiency. Trivial tricuspid valve insufficiency. Moderate focal aortic valve calcification. Mild aortic stenosis. Unable to estimate RV systolic pressure/pulmonary artery pressure due to cristina hnically difficult study. Unable to assess diastolic dysfunction. Ordering Physician: Michael Lindsey Referring Physician: LAMBERT ABBOTT Performed By: Aleyda Crook RCS Chest X-Ray 03/27/22 18:05 IMPRESSION: The heart and lungs appear clear. Endotracheal tube, right IJ central catheter, and enteric tube remain. Electronically Signed: Kaiden Carmona MD at 19:14 EST , Physical Exam Narrative Constitutional Narrative: Patient is sedated and on the ventilator HEENT head/scalp atraumatic Neck no JVD Resp normal respiratory effort, no retractions and clear to auscultation bilaterally Resp Narrative: Patient is on the ventilator at this time Cardio regular rate, regular rhythm, S1 normal heart sound, S2 normal heart sound and no murmurs GI normal to inspection, nondistended, normoactive bowel sounds Extremity normal to inspection Neuro Neuro Narrative: Patient is sedated on the ventilator Psych Psych Narrative: Patient is sedated and on the ventilator Assessment & Plan Assessment/Plan (1) Seizure: (2) Hyponatremia: PLAN: Plan 1. Severe hyponatremia-etiology unknown at this time, patient's sodium is improved-today it is 123, she is currently being seen by nephrology #2 acute hypoxic respiratory failure-patient is currently on the ventilator at this time, pulmonary medicine is participating in her care #3 seizure disorder-possibly secondary to hyponatremia, patient will be monitored, patient had a past history of seizures as documented in the medical record in 2016. #4 hypotension-etiology unclear, sepsis should be ruled out, patient is currently on IV pressors, and attempt to wean them is being made. #5 chronic obstructive pulmonary disease-complicates care, management, recovery, and prognosis #6 essential hypertension-patient's medications will be held due to hypotension Charges/Coding Visit Charges Inpatient E&M: 75749 Subs Hosp L2
[2022-03-28] MEDS: 0.45% Normal Saline 1,000 ML 50 ML IV (13:23)
[2022-03-28 15:00] LABS: Anion Gap 9 (5-15); BUN 9 mg/dL (7-18); BUN/Creat Ratio 16.3 RATIO (10-20); Calcium,Total 7.9 mg/dL (8.5-10.1); Chloride 95 mmol/L (98-107); Creatinine, Serum 0.55 mg/dL (0.55-1.02); EST Glomerular Filtration Rate 114 mL/min (>60); Est Glom Filt Rate - Afr Amer 138 mL/min (>60); Estimated Creatinine Clearance 37.85 ml/min; Glucose 153 mg/dL (74-106); Potassium 3.8 mmol/L (3.5-5.1); Sodium Level 123 mmol/L (136-145)
[2022-03-28 18:27] LABS: Anion Gap 7 (5-15); BUN 9 mg/dL (7-18); BUN/Creat Ratio 17.4 RATIO (10-20); Calcium,Total 7.9 mg/dL (8.5-10.1); Chloride 95 mmol/L (98-107); Creatinine, Serum 0.52 mg/dL (0.55-1.02); EST Glomerular Filtration Rate 123 mL/min (>60); Est Glom Filt Rate - Afr Amer 149 mL/min (>60); Estimated Creatinine Clearance 37.85 ml/min; Glucose 134 mg/dL (74-106); Potassium 3.6 mmol/L (3.5-5.1); Sodium Level 122 mmol/L (136-145)
[2022-03-28 21:11] LABS: Bedside Glucose 133 mg/dL (74-106)
--- NOTE | 2022-03-28 21:20 | EKG12_ITS ---
Test Reason : TACHYCARDIA Blood Pressure : / mmHG Vent. Rate : 144 BPM Atrial Rate : 144 BPM P-R Int : 174 ms QRS Dur : 068 ms QT Int : 312 ms P-R-T Axes : 080 064 107 degrees QTc Int : 483 ms Supraventricular tachycardia Nonspecific ST and T wave abnormality Abnormal ECG Confirmed by CHRISTOPHER GARCIA, SARAHI ([id number]), senior editor SRIKANTH VARGAS ([id number]) on 04/01/2022 10:52:45 AM Referred By: Confirmed By:SARAHI WHITE MD
--- NOTE | 2022-03-28 22:11 | NURSING ---
Upon assessment at 1999, pt would not open eyes to voice or withdraw from pain in any extremities. Cough reflex intact, pupils equal and reactive to light, and pt breathing above the vent. Fentanyl and propofol drips turned off. HR spiked to 140s around 2100 and pt opened her eyes to voice. Only fentanyl turned back on at reduced rate for comfort, RASS -1 at this time.
[2022-03-28 23:44] LABS: Anion Gap 9 (5-15); BUN 10 mg/dL (7-18); BUN/Creat Ratio 13.5 RATIO (10-20); Calcium,Total 8.5 mg/dL (8.5-10.1); Chloride 97 mmol/L (98-107); Creatinine, Serum 0.74 mg/dL (0.55-1.02); EST Glomerular Filtration Rate 81 mL/min (>60); Est Glom Filt Rate - Afr Amer 98 mL/min (>60); Estimated Creatinine Clearance 37.85 ml/min; Glucose 104 mg/dL (74-106); Potassium 3.7 mmol/L (3.5-5.1); Sodium Level 124 mmol/L (136-145)
[2022-03-29] VITALS (46 sets, daily range): BP systolic 45–173; BP diastolic 14–139; PULSE 37–153; RESP 14–28; TEMP 35.3–38.4; O2SAT 89–100
--- NOTE | 2022-03-29 03:11 | EKG12_ITS ---
Test Reason : TACHYCARDIA Blood Pressure : / mmHG Vent. Rate : 157 BPM Atrial Rate : 156 BPM P-R Int : 000 ms QRS Dur : 068 ms QT Int : 264 ms P-R-T Axes : 000 066 103 degrees QTc Int : 426 ms Supraventricular tachycardia Nonspecific ST abnormality Abnormal ECG Confirmed by CHRISTOPHER GARCIA, SARAHI ([id number]), editor index SRIKANTH VARGAS ([id number]) on 04/01/2022 10:57:18 AM Referred By: Confirmed By:SARAHI WHITE MD
--- NOTE | 2022-03-29 03:11 | EKG12_ITS ---
Test Reason : TACHYCARDIA Blood Pressure : / mmHG Vent. Rate : 157 BPM Atrial Rate : 156 BPM P-R Int : 000 ms QRS Dur : 068 ms QT Int : 264 ms P-R-T Axes : 000 065 101 degrees QTc Int : 426 ms Supraventricular tachycardia Nonspecific ST and T wave abnormality Abnormal ECG Confirmed by CHRISTOPHER GARCIA, SARAHI ([id number]), editor city SRIKANTH VARGAS ([id number]) on 04/01/2022 11:15:45 AM Referred By: Confirmed By:SARAHI WHITE MD
--- NOTE | 2022-03-29 03:13 | EKG12_ITS ---
Test Reason : TACHYCARDIA Blood Pressure : / mmHG Vent. Rate : 152 BPM Atrial Rate : 182 BPM P-R Int : 000 ms QRS Dur : 070 ms QT Int : 216 ms P-R-T Axes : 000 063 234 degrees QTc Int : 343 ms Atrial fibrillation Nonspecific ST and T wave abnormality Abnormal ECG Confirmed by CHRISTOPHER GARCIA, SARAHI ([id number]), production editor SRIKANTH VARGAS ([id number]) on 04/01/2022 10:49:54 AM Referred By: Confirmed By:SARAHI WHITE MD
[2022-03-29] MEDS: 0.9% Saline Lock 10 ML Syringe IV (03:37)
[2022-03-29] MEDS: CHLORHEXIDINE GLUC 2% CLOTH 1 EACH TOWELETTE TOPICAL (03:37)
[2022-03-29] MEDS: dilTIAZem 25 MG/5 ML Vial 10 MG IV BOLUS (03:37)
[2022-03-29 03:51] LABS: Basophil# 0.07 X10^3/uL; Eosinophil# 0.08 X10^3/uL; Hematocrit 47.3 % (37-47); Hemoglobin 16.4 g/dL (12.0-15.0); Mean Corp Hgb Conc 34.7 g/dL (32-36); Mean Corpuscular Hgb 33.2 pg (27.0-32.0); Mean Corpuscular Volume 95.7 fL (81-99); Mean Platelet Vol. 9.6 fl (6.2-12.0); Monocyte# 0.51 X10^3/uL; NRBC Flagged by Analyzer 0 % (0-5); POSITIVE DIFFERENTIAL YES; POSITIVE MORPHOLOGY YES; Platelet Count 151 K/mm3 (150-450); RBC Distribution Width CV 13.4 % (11.6-14.6); RBC Distribution Width SD 48.1 fl (35.1-43.9); Red Blood Count 4.94 M/mm3 (4.2-5.4); White Blood Count 5.9 K/mm3 (4.4-11.0)
[2022-03-29 03:55] LABS: Differential Indicated SCAN CRITERIA MET
[2022-03-29] MEDS: Enoxaparin 80 MG/0.8 ML Syringe 70 MG SC (04:07)
[2022-03-29 04:13] LABS: Anion Gap 12 (5-15); BUN 12 mg/dL (7-18); BUN/Creat Ratio 10.6 RATIO (10-20); Calcium,Total 8.8 mg/dL (8.5-10.1); Chloride 97 mmol/L (98-107); Creatinine, Serum 1.13 mg/dL (0.55-1.02); EST Glomerular Filtration Rate 50 mL/min (>60); Est Glom Filt Rate - Afr Amer 60 mL/min (>60); Glucose 78 mg/dL (74-106); Potassium 4.3 mmol/L (3.5-5.1); Sodium Level 122 mmol/L (136-145)
[2022-03-29 04:14] LABS: Magnesium 2.2 mg/dL (1.6-2.6); Phosphorus 3.6 mg/dL (2.5-4.9)
[2022-03-29] MEDS: 0.9% Normal Saline 1,000 ML 70 ML IV (04:30)
[2022-03-29] MEDS: Amiodarone 360 MG in Dextrose 5% Viaflo Bag 192.8 ML 33.3 MG CONT INF (04:30)
[2022-03-29 04:48] LABS: Scan Smear per Review Criteria MANUAL DIFF
--- NOTE | 2022-03-29 04:51 | CT_ITS ---
EXAM: CT brain without contrast HISTORY: pupil blown TECHNIQUE: CT Head Stroke Protocol W/O Contrast Injection A radiation dose optimization technique was used for this scan. COMPARISON: None. LIMITATIONS: None. BRAIN: Normal mitchell/white matter differentiation. VENTRICLES: The ventricles and cortical sulci are mildly enlarged. Bilateral periventricular hypoattenuation, nonspecific however likely represents chronic microvascular ischemic changes. EXTRA-AXIAL SPACES: No hemorrhages, fluid collections, or masses. CALVARIUM/SKULL BASE: Normal. FACE/SINUSES: Visualized portions normal. SOFT TISSUES: Normal. OTHER: Status post right cataract surgery. CT/STROKE Brain/Head without Cont IMPRESSION: 1. No intracranial hemorrhage or acute territorial infarction. 2. Senescent changes. Findings discussed with Dr. Zaki Luna via phone at 2:42 AM PST on 03/29/2022. N.B. : The above Results were Read Back by Jorge L Kovacs MD to Dr. Zaik Luna MD, and understanding confirmed on 03/29/2022 05:43:40 (ET). Electronically Signed: Jorge L Kovacs MD at 5:46 EST ,
--- NOTE | 2022-03-29 04:53 | CT_ITS ---
We are attempting to reach an attending provider to discuss findings. An addendum with communication details will be sent when the communication is complete. EXAM: CTA Head and Neck W/ Contrast Injection (and W/O Contrast Images if performed) HISTORY: change in mental status, pupils blown TECHNIQUE: CTA Head and Neck W/ Contrast Injection (and W/O Contrast Images if performed) Postcontrast axial images were obtained of the brain and neck. NASCET criteria using the distal ICAs for comparison were used for evaluation of stenoses. 3D reconstructions were reviewed. A radiation dose optimization technique was used for this scan. COMPARISON: MRA brain 11/16/2018 LIMITATIONS: Motion. CAROTID ARTERIES: Normal. ANTERIOR CEREBRAL ARTERIES: Normal. MIDDLE CEREBRAL ARTERIES: Normal. POSTERIOR CEREBRAL ARTERIES: Normal. BASILAR ARTERY: Normal. VERTEBRAL ARTERIES: The right vertebral artery terminates in the PICA.. VENOUS STRUCTURES: There is early filling of the cavernous sinus, right greater than left. No discrete dilatation or opacification of the ophthalmic veins. OTHER: None. AORTIC ARCH: Normal. CAROTID ARTERIES: Mild stenoses in the bilateral internal carotid arteries.. VERTEBRAL ARTERIES: Severe stenosis at the origin the right vertebral artery. Dominant left vertebral artery. OTHER ARTERIES: Normal. VENOUS STRUCTURES: Normal. BONES/SOFT TISSUES: Normal. OTHER: Fluid and debris in the partially visualized esophagus. Endotracheal and enteric tubes are partially visualized. Mild centrilobular and paraseptal emphysematous changes in the partially visualized lung apices. Right IJ central venous catheter terminates beyond the [id number]. CT/CTA Head AND Neck W/ Contrast IMPRESSION: 1. Evaluation limited due to motion. 2. Mild stenoses in the bilateral internal carotid arteries. 3. Severe stenosis at the origin of the right vertebral artery. 4. Early filling of the cavernous sinus, cannot exclude caroticocavernous fistula 5. Otherwise, no aneurysm or dissection in the head and neck. Findings discussed with Dr. Zaki Luna via phone at 2:42 AM PST on 03/29/2022. Electronically Signed: Jorge L Kovacs MD at 5:59 EST ,
[2022-03-29 04:54] LABS: Lymphocyte 4 % (19-41); Metamyelocyte 28 % (0-1); Monocyte 5 % (0-10); Neutrophil-Band 14 % (0-5); Neutrophil-Segmented 49 % (47-70); Total Cells Counted 100 (MANUAL DIFF)
[2022-03-29 04:56] LABS: Neutrophil # 5.38 X10^3/uL (2.7-7.7)
[2022-03-29 04:57] LABS: Absolute Lymphocyte Count 0.24 X10^3/uL (0.83-4.51); Absolute Neutrophil Count 5.4 X10^3/uL (2.0-7.7); Lymphocyte # 0.24 X10^3/ul (0.83-4.51)
[2022-03-29 04:58] LABS: Platelet Estimate SLT DEC (ADEQ)
[2022-03-29 04:59] LABS: Red Cell Morphology NORM C+C NORMAL (NORM C&C)
--- NOTE | 2022-03-29 05:12 | PCM.PN.BLA ---
Progress Note Notified of an SVT rhythm and later Afib with RVR. Cardizem 10mg bolus given with slowing of rhythm but with with transient hypotension. Patient continued to have persistent Afib with RVR. Patient continues to be on pressors. With previous transient hypotension and patient continually in Afib started on therapeutic dose of lovenox and amiodarone. Stroke alert called for left dilated pupil which does not react to light. Also patient's was not withdrawing to pain even though sedation had to be off for about [address] brain ordered. CTA head and neck ordered. Radiology called and stated that there was no bleed. Also there was no large vessel occlusion. However radiology reports drainage in cavernous sinus; which clinically does not match patient's symptoms. Discussed case with teleneurology who stated that stat EEG should be obtained. And that therapeutic dose of Lovenox should be stopped until MRI is obtained. MRI ordered. Last echocardiogram on file 03/27/2022. Echocardiogram that time showed EF of 70%. Diastolic function could not be determined. No reports of clots. Normal left atrium. Normal right atrium. No evidence of atrial septal defects. With new onset A. fib echocardiogram repeat ordered. Serial NIH is ordered.
[2022-03-29 05:16] LABS: Bedside Glucose 72 mg/dL (74-106)
--- NOTE | 2022-03-29 05:17 | NURSING ---
Call completed to [facility] stat line for Stroke Alert. Bedside RN to call when CTA is complete and robot set up.
[2022-03-29 06:18] LABS: Cholesterol 134 mg/dL (200); High Density Lipoprotein 97 mg/dL; Triglycerides 154 mg/dL; Very Low Density Lipoprotein 31 mg/dL (5-40)
[2022-03-29] MEDS: LORazepam 2 MG/ML Syringe IV ×2 (06:32→13:06)
--- NOTE | 2022-03-29 06:59 | NURSING ---
Upon assessment at 0445, pt's pupils were not equal, L one was dilated and not reactive to light. R pupil reacted to light. Pt was also not withdrawing to pain at this time. Sedation had been off for about an hr. Blood sugar was 72. Stroke alert called.
--- NOTE | 2022-03-29 07:11 | PCM.PN.INT ---
Assessment & Plan Assessment/Plan (1) Hyponatremia: PLAN: Plan RECOMMENDATIONS: 1. Continue assist-control mode mechanical ventilation. Continue to wean FiO2 to maintain oxygen saturations at or above 90%. 2. Maintain seizure precautions and utilize as needed Ativan. Agree with adding Keppra 3. Cautious sodium correction per nephrology. 4. Continue propofol and fentanyl for sedation. Possibly transition to Precedex when closer to extubation 5. Continue to wean Levophed to maintain a mean arterial pressure at or above 65 mmHg. 6. Continue appropriate ICU prophylaxis. 7. MRI and EEG as ordered 8. Consider consultation to GI IMPRESSIONS: 1. Acute hypoxemic respiratory failure The patient was ultimately intubated after she developed hypoxemia after experiencing a seizure. There was no witnessed aspiration event. The patient was emergently intubated. Therefore, the patient will be continued on assist control mode of mechanical ventilation. FiO2 will be weaned for saturations greater than 90%. Continue current sedation regimen. Hold on trials given high pressor requirements at this time. 2. Significant hyponatremia and associated seizures Likely secondary to a combination of intravascular volume depletion and chronic alcohol dependency. 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 Plan to continue cautious correction of her underlying sodium derangement, per nephrology recommendations. Continue to monitor serial sodium levels as ordered. Sodium relatively normal at this time, but patient appears to have seizure activity. EEG and MRI will be ordered. Patient has been initiated on Keppra 3. Shock Slowly improving. Most likely secondary to the hemodynamic effects of the sedative medications being utilized to keep the patient comfortable while on the ventilator. Prior to intubation and initiation of sedative medications, the patient was hemodynamically stable. Plan to continue Levophed to maintain a mean arterial pressure at or above 65 mmHg. 4. Chronic alcohol and tobacco dependency/possible DTs/possible upper GI bleed The patient does have a chronic alcohol and tobacco dependency, verified by family. She apparently takes in very little nutrition by home and drinks alcohol on a daily basis. Seizures could have been secondary to hyponatremia, withdrawal or organic issue. The patient would likely benefit from nicotine replacement therapy while admitted to the hospital. She will need to be monitored closely for any evidence of refeeding syndrome. Coffee-ground emesis noted after full anticoagulation. Will increase PPI to twice daily. Patient may require GI work-up 5. History of hypertension/hypothyroidism/GERD Complicates care, management, recovery and prognosis. Continue to hold home medications for now given tenuous hemodynamics. Coffee-ground emesis may be secondary to Hilary-Jay tear, gastritis or ulceration. Patient will be increased to PPI twice daily. H&H is appropriate at this time. TIME: 45 minutes of critical care time, independent of procedures, was spent addressing the patient's acute hypoxemic respiratory failure, hyponatremia, seizures, shock, chronic alcohol and tobacco dependency, review of all data and collaboration with the care team. Subjective Subjective Patient did okay through the day yesterday. However, overnight patient had sinus tachycardia and A. fib with RVR. Patient was given Cardizem with some hypotension, therapeutic Lovenox and subsequently started on an amiodarone drip. Nursing had reported a blown left pupil leading to a stroke team. Work-up has been relatively unremarkable with a CT and CTA. There was some concern for possible seizure, so patient has been initiated on Keppra. Nursing reported pupillary findings did improve spontaneously. Patient did have a coffee-ground emesis on the way back from CT scan. Objective Data Objective Data On my physical evaluation, patient was noted to have a blown left pupil again. This reportedly was a significant change. Patient was given 2 mg of Ativan with resolution in 3 to 5 minutes. Vital Signs: Vital Signs Temp Pulse Resp BP Pulse Ox O2 Del Method FiO2 37.6 C H 84 21 H 150/88 H 90 Mechanical Ventilator 30 03/29/22 02:00 03/29/22 06:59 03/29/22 06:59 03/29/22 02:00 03/29/22 06:59 03/29/22 04:45 03/29/22 06:59 Oxygen Delivery Method Mechanical Ventilator Weight: 71.2 kg Body Mass Index (BMI) 28.1 Intake & Output: Intake and Output for Last 24 Hours 03/27/22 03/28/22 03/29/22 23:59 23:59 23:59 Intake Total 3751.44 / 4176.44 5024.40 / 5039.04 311.60 / 311.60 Output Total 1150 / 1730 2380 / 2380 175 / 175 Balance 2601.44 / 2446.44 2644.40 / 2659.04 136.60 / 136.60 Lab / Micro Data Attestation: I reviewed the patient's lab results. Result Diagrams: 03/29/22 03:40 03/29/22 03:40 Labs: Laboratory Results - last 24 hr 03/28/22 10:00: Sodium 123 L, Potassium 3.9, Chloride 96 L, Carbon Dioxide 19.0 L, Anion Gap 8, BUN 10, Creatinine 0.66, Estim Creat Clear Calc 37.85, Est GFR (MDRD) Af Amer 113, Est GFR (MDRD) Non-Af 93, BUN/Creatinine Ratio 15.3, Glucose 166 H, Calcium 7.9 L 03/28/22 14:35: Sodium 123 L, Potassium 3.8, Chloride 95 L, Carbon Dioxide 19.0 L, Anion Gap 9, BUN 9, Creatinine 0.55, Estim Creat Clear Calc 37.85, Est GFR (MDRD) Af Amer 138, Est GFR (MDRD) Non-Af 114, BUN/Creatinine Ratio 16.3, Glucose 153 H, Calcium 7.9 L 03/28/22 18:00: Sodium 122 L, Potassium 3.6, Chloride 95 L, Carbon Dioxide 20.0 L, Anion Gap 7, BUN 9, Creatinine 0.52 L, Estim Creat Clear Calc 37.85, Est GFR (MDRD) Af Amer 149, Est GFR (MDRD) Non-Af 123, BUN/Creatinine Ratio 17.4, Glucose 134 H, Calcium 7.9 L 03/28/22 20:52: POC Glucose 133 H 03/28/22 23:00: Sodium 124 L, Potassium 3.7, Chloride 97 L, Carbon Dioxide 18.0 L, Anion Gap 9, BUN 10, Creatinine 0.74, Estim Creat Clear Calc 37.85, Est GFR (MDRD) Af Amer 98, Est GFR (MDRD) Non-Af 81, BUN/Creatinine Ratio 13.5, Glucose 104, Calcium 8.5 03/29/22 03:40: Phosphorus 3.6, Magnesium 2.2 03/29/22 03:40: Sodium 122 L, Potassium 4.3, Chloride 97 L, Carbon Dioxide 13.0 L, Anion Gap 12, BUN 12, Creatinine 1.13 H, Estim Creat Clear Calc 33.50, Est GFR (MDRD) Af Amer 60, Est GFR (MDRD) Non-Af 50 L, BUN/Creatinine Ratio 10.6, Glucose 78, Calcium 8.8 03/29/22 03:40: WBC 5.9, RBC 4.94, Hgb 16.4 H, Hct 47.3 H, MCV 95.7, MCH 33.2 H, MCHC 34.7 D, RDW Std Deviation 48.1 H, RDW Coeff of Vlad 13.4, Plt Count 151, MPV 9.6, Immature Gran % (Auto) [employer]ANCE SERVICER, Neut % (Auto) G[employer] APPLIANCE SERVICER, Lymph % (Auto) G[employer] APPLIANCE SERVICER, Swain % (Auto) G[employer] APPLIANCE SERVICER, Eos % (Auto) G[employer] APPLIANCE SERVICER, Baso % (Auto) G[employer] APPLIANCE SERVICER, Absolute Neuts (auto) 5.4, Absolute Lymphs (auto) 0.24 L, Total Counted 100, Neutrophils % (Manual) 49, Band Neutrophils % 14 H, Lymphocytes % (Manual) 4 L, Monocytes % (Manual) 5, Metamyelocytes % 28 H, Nucleated RBC % 0, Diff Path Review July, Platelet Estimate SLT DEC, RBC Morphology NORM C+C 03/29/22 03:40: Triglycerides 154, Cholesterol 134, LDL Cholesterol 6, VLDL Cholesterol 31, HDL Cholesterol 97 03/29/22 04:50: POC Glucose 72 L Micro: Microbiology 03/27/22 07:35 Urine Catheter - Catheter Urine Culture - Preliminary Culture exhibits no growth. 03/26/22 07:15 Sputum, Induced/Lukens Gram Stain - Final 03/26/22 07:15 Sputum, Induced/Lukens Respiratory Culture - Final Presumptive C albicans Radiography Diagnostic Testing: Radiology Impression Brain CT 03/29/22 04:51 IMPRESSION: 1. No intracranial hemorrhage or acute territorial infarction. 2. Senescent changes. Findings discussed with Dr. Zaki Luna via phone at 2:42 AM PST on 03/29/2022. N.B. : The above Results were Read Back by Jorge L Kovacs MD to Dr. Zaki Luna MD, and understanding confirmed on 03/29/2022 05:43:40 (ET). Electronically Signed: Jorge L Kovacs MD at 5:46 EST , ADDENDUM: 03/29/22 0553 IMPRESSION: 1. No intracranial hemorrhage or acute territorial infarction. 2. Senescent changes. Findings discussed with Dr. Zaki Luna via phone at 2:42 AM PST on 03/29/2022. N.B. : The above Results were Read Back by Jorge L Kovacs MD to Dr. Zaki Luna MD, and understanding confirmed on 03/29/2022 05:43:40 (ET). Electronically Signed: Jorge L Kovacs MD at 5:46 EST , Head/Neck CTA 03/29/22 04:53 IMPRESSION: 1. Evaluation limited due to motion. 2. Mild stenoses in the bilateral internal carotid arteries. 3. Severe stenosis at the origin of the right vertebral artery. 4. Early filling of the cavernous sinus, cannot exclude caroticocavernous fistula 5. Otherwise, no aneurysm or dissection in the head and neck. Findings discussed with Dr. Zaki Luna via phone at 2:42 AM PST on 03/29/2022. Electronically Signed: Jorge L Kovacs MD at 5:59 EST , ADDENDUM: 03/29/22 0610 IMPRESSION: 1. Evaluation limited due to motion. 2. Mild stenoses in the bilateral internal carotid arteries. 3. Severe stenosis at the origin of the right vertebral artery. 4. Early filling of the cavernous sinus, cannot exclude caroticocavernous fistula 5. Otherwise, no aneurysm or dissection in the head and neck. Findings discussed with Dr. Zaki Luna via phone at 2:42 AM PST on 03/29/2022. N.B. : The above Results were Read Back by Jorge L Kovacs MD to Dr. Zaki Luna MD, and understanding confirmed on 03/29/2022 06:03:06 (ET). Electronically Signed: Jorge L Kovacs MD at 5:59 EST , Physical Exam Const no apparent distress General Appearance: intubated and patient mechanically ventilated HEENT normocephalic and head/scalp atraumatic Mouth: endotracheal tube in place and OG tube in place Eyes PERRL and EOMs intact bilaterally Neck supple Neck Narrative: Right IJ clean, dry and intact. General: trachea midline and CVC in place Chest inspection of chest normal Resp Auscultation: diminished lung sounds; Negative for rales, rhonchi or wheezes Cardio regular rhythm, S1 normal heart sound, S2 normal heart sound, no murmurs, no rub and no gallops Rate: tachycardic GI normal to inspection, nondistended, normoactive bowel sounds Extremity no clubbing, cyanosis or edema Skin no rashes or lesions noted Neuro Neuro Narrative: Blown pupil noted on initially, but resolved with Ativan. Patient not following commands Sensorium / Orientation: sedated on vent Psych Mood & Affect: flat affect Charges/Coding Procedures Hospitalists Procedures: 41560 Critial Care 1st Hr
[2022-03-29 07:25] LABS: Anion Gap 12 (5-15); BUN 12 mg/dL (7-18); BUN/Creat Ratio 9.2 RATIO (10-20); Calcium,Total 7.8 mg/dL (8.5-10.1); Chloride 97 mmol/L (98-107); EST Glomerular Filtration Rate 42 mL/min (>60); Est Glom Filt Rate - Afr Amer 51 mL/min (>60); Estimated Creatinine Clearance 29.12 ml/min; Glucose 59 mg/dL (74-106); Sodium Level 122 mmol/L (136-145)
[2022-03-29 07:27] LABS: Troponin-I HS 343 pg/mL (3.0-54.0)
[2022-03-29] MEDS: levETIRAcetam IV 1,000 MG/100 ML BAG 400 MG IV (08:42)
--- NOTE | 2022-03-29 09:16 | TELEMED_ITS ---
[facility] has confirmed receipt of a request for visit. This document confirms receipt of the order initiating the consult. To find the results of the consultation, please view the patient's reports for the scanned Telemed Consult.
--- NOTE | 2022-03-29 09:37 | PCM.PN.REN ---
Subjective Subjective Patient remains on vasopressin and Levophed Went into A. fib RVR overnight Objective Data Objective Data Vital Signs: Vital Signs Temp Pulse Resp BP Pulse Ox O2 Del Method FiO2 98.6 F 91 27 H 144/97 H 97 Mechanical Ventilator 30 03/29/22 04:30 03/29/22 08:39 03/29/22 08:39 03/29/22 08:39 03/29/22 08:39 03/29/22 08:39 03/29/22 08:39 Oxygen Delivery Method Mechanical Ventilator Weight: 71.2 kg Body Mass Index (BMI) 28.1 Intake & Output: Intake and Output for Last 24 Hours 03/27/22 03/28/22 03/29/22 23:59 23:59 23:59 Intake Total 3751.44 / 4176.44 5024.40 / 5039.04 1095.84 / 1095.84 Output Total 1150 / 1730 2380 / 2380 175 / 175 Balance 2601.44 / 2446.44 2644.40 / 2659.04 920.84 / 920.84 Lab / Micro Data Result Diagrams: 03/29/22 03:40 03/29/22 06:57 Labs: Laboratory Results - last 24 hr 03/28/22 10:00: Sodium 123 L, Potassium 3.9, Chloride 96 L, Carbon Dioxide 19.0 L, Anion Gap 8, BUN 10, Creatinine 0.66, Estim Creat Clear Calc 37.85, Est GFR (MDRD) Af Amer 113, Est GFR (MDRD) Non-Af 93, BUN/Creatinine Ratio 15.3, Glucose 166 H, Calcium 7.9 L 03/28/22 14:35: Sodium 123 L, Potassium 3.8, Chloride 95 L, Carbon Dioxide 19.0 L, Anion Gap 9, BUN 9, Creatinine 0.55, Estim Creat Clear Calc 37.85, Est GFR (MDRD) Af Amer 138, Est GFR (MDRD) Non-Af 114, BUN/Creatinine Ratio 16.3, Glucose 153 H, Calcium 7.9 L 03/28/22 18:00: Sodium 122 L, Potassium 3.6, Chloride 95 L, Carbon Dioxide 20.0 L, Anion Gap 7, BUN 9, Creatinine 0.52 L, Estim Creat Clear Calc 37.85, Est GFR (MDRD) Af Amer 149, Est GFR (MDRD) Non-Af 123, BUN/Creatinine Ratio 17.4, Glucose 134 H, Calcium 7.9 L 03/28/22 20:52: POC Glucose 133 H 03/28/22 23:00: Sodium 124 L, Potassium 3.7, Chloride 97 L, Carbon Dioxide 18.0 L, Anion Gap 9, BUN 10, Creatinine 0.74, Estim Creat Clear Calc 37.85, Est GFR (MDRD) Af Amer 98, Est GFR (MDRD) Non-Af 81, BUN/Creatinine Ratio 13.5, Glucose 104, Calcium 8.5 03/29/22 03:40: Phosphorus 3.6, Magnesium 2.2 03/29/22 03:40: Sodium 122 L, Potassium 4.3, Chloride 97 L, Carbon Dioxide 13.0 L, Anion Gap 12, BUN 12, Creatinine 1.13 H, Estim Creat Clear Calc 33.50, Est GFR (MDRD) Af Amer 60, Est GFR (MDRD) Non-Af 50 L, BUN/Creatinine Ratio 10.6, Glucose 78, Calcium 8.8 03/29/22 03:40: WBC 5.9, RBC 4.94, Hgb 16.4 H, Hct 47.3 H, MCV 95.7, MCH 33.2 H, MCHC 34.7 D, RDW Std Deviation 48.1 H, RDW Coeff of Vlad 13.4, Plt Count 151, MPV 9.6, Immature Gran % (Auto) REPAIRER TYPEWRITER, Neut % (Auto) REPAIRER TYPEWRITER, Lymph % (Auto) REPAIRER TYPEWRITER, Ferry % (Auto) REPAIRER TYPEWRITER, Eos % (Auto) REPAIRER TYPEWRITER, Baso % (Auto) REPAIRER TYPEWRITER, Absolute Neuts (auto) 5.4, Absolute Lymphs (auto) 0.24 L, Total Counted 100, Neutrophils % (Manual) 49, Band Neutrophils % 14 H, Lymphocytes % (Manual) 4 L, Monocytes % (Manual) 5, Metamyelocytes % 28 H, Nucleated RBC % 0, Diff Path Review May marley, Platelet Estimate SLT DEC, RBC Morphology NORM C+C 03/29/22 03:40: Triglycerides 154, Cholesterol 134, LDL Cholesterol 6, VLDL Cholesterol 31, HDL Cholesterol 97 03/29/22 04:50: POC Glucose 72 L 03/29/22 06:57: Troponin I High Sens 343 H* 03/29/22 06:57: Sodium 122 L, Potassium 5.0, Chloride 97 L, Carbon Dioxide 13.0 L, Anion Gap 12, BUN 12, Creatinine 1.30 H, Estim Creat Clear Calc 29.12, Est GFR (MDRD) Af Amer 51 L, Est GFR (MDRD) Non-Af 42 L, BUN/Creatinine Ratio 9.2 L, Glucose 59 L, Calcium 7.8 L Micro: Microbiology 03/27/22 07:50 Blood Culture (Wb) - Left Forearm Blood Culture - Preliminary No growth in 48 hours. 03/27/22 07:40 Blood Culture (Wb) - Port Blood Culture - Preliminary No growth in 48 hours. 03/27/22 07:35 Urine Catheter - Catheter Urine Culture - Preliminary Culture exhibits no growth. 03/26/22 07:15 Sputum, Induced/Lukens Gram Stain - Final 03/26/22 07:15 Sputum, Induced/Lukens Respiratory Culture - Final Presumptive C albicans Radiography Diagnostic Testing: Radiology Impression Brain CT 03/29/22 04:51 IMPRESSION: 1. No intracranial hemorrhage or acute territorial infarction. 2. Senescent changes. Findings discussed with Dr. Zaki Luna via phone at 2:42 AM PST on 03/29/2022. N.B. : The above Results were Read Back by Jorge L Kovacs MD to Dr. Zaki Luna MD, and understanding confirmed on 03/29/2022 05:43:40 (ET). Electronically Signed: Jorge L Kovacs MD at 5:46 EST , ADDENDUM: 03/29/22 0553 IMPRESSION: 1. No intracranial hemorrhage or acute territorial infarction. 2. Senescent changes. Findings discussed with Dr. Zaki Luna via phone at 2:42 AM PST on 03/29/2022. N.B. : The above Results were Read Back by Jorge L Kovacs MD to Dr. Zaki Luna MD, and understanding confirmed on 03/29/2022 05:43:40 (ET). Electronically Signed: Jorge L Kovacs MD at 5:46 EST , Head/Neck CTA 03/29/22 04:53 IMPRESSION: 1. Evaluation limited due to motion. 2. Mild stenoses in the bilateral internal carotid arteries. 3. Severe stenosis at the origin of the right vertebral artery. 4. Early filling of the cavernous sinus, cannot exclude caroticocavernous fistula 5. Otherwise, no aneurysm or dissection in the head and neck. Findings discussed with Dr. Zaki Luna via phone at 2:42 AM PST on 03/29/2022. Electronically Signed: Jorge L Kovacs MD at 5:59 EST , ADDENDUM: 03/29/22 0610 IMPRESSION: 1. Evaluation limited due to motion. 2. Mild stenoses in the bilateral internal carotid arteries. 3. Severe stenosis at the origin of the right vertebral artery. 4. Early filling of the cavernous sinus, cannot exclude caroticocavernous fistula 5. Otherwise, no aneurysm or dissection in the head and neck. Findings discussed with Dr. Zaki Luna via phone at 2:42 AM PST on 03/29/2022. N.B. : The above Results were Read Back by Jorge L Kovacs MD to Dr. Zaki Luna MD, and understanding confirmed on 03/29/2022 06:03:06 (ET). Electronically Signed: Jorge L Kovacs MD at 5:59 EST , Physical Exam Narrative On mechanical ventilator support, no apparent distress S1, S2, RRR Lung sounds clear anteriorly Abdomen soft, positive bowel sounds No edema Indwelling Larson with clear urine in bag Assessment & Plan Assessment/Plan (1) Hyponatremia: (2) Seizure: PLAN: Plan Acute on chronic hyponatremia -Symptomatic evident by seizure-like activities -On presentation sodium level 107 mmol/L, status post 50 mL of 3% hypertonic bolus x1 -Currently her sodium levels at 122 mmol/L -Main issues overnight includes persistent hypotension in addition to worsening acidemia -We will change IV fluid to half-normal saline with 75 mill equivalent of sodium bicarb which is a slightly hypertonic solution both to correct hyponatremia in addition to acidemia -Goal be to raise sodium to about 128 mmol/L today -Continue to monitor BMP every 6 hours -Imaging study noted Candel[place] with ICU team and RN Thank you please call [phone] with any concerns
--- NOTE | 2022-03-29 10:11 | NURSING ---
Pt noted with bradycardia in the 40s. Upon assessment, has femoral pulses, marked. Dr. Veliz at bedside to assess. L pupil blow and this time and R pupil nonreactive 2 mm. Pt w/ frequent PVCs at this time and with intermittent bradycardia. Dr. Veliz calling family to discuss code status.
[2022-03-29] MEDS: Sodium Bicarbonate 75 MEQ in 0.45% Normal Saline 1,000 ML 70 MEQ IV (10:24)
[2022-03-29 11:01] LABS: Bedside Glucose 46 mg/dL (74-106)
[2022-03-29] MEDS: Chlorhexidine 15 ML PO (11:09)
[2022-03-29] MEDS: Lansoprazole 15 MG Capsule.DR GT (11:10)
[2022-03-29] MEDS: Sodium Bicarbonate 8.4% 50 ML Syringe 50 MEQ IV (11:18)
[2022-03-29 11:20] LABS: Bedside Glucose 306 mg/dL (74-106)
[2022-03-29] MEDS: morphine 10 MG/ML Syringe 6 MG IV (13:06)
--- NOTE | 2022-03-29 13:41 | EXP.PCM_ITS ---
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 Work- up in the emergency room showed her sodium to be 107, chloride was low at 69, patient was admitted to ICU for further care. She was given hypertonic saline and seen by nephrology. A few hours later, rapid response was called due to the fact it was noted that the patient had seizure activity and lack of airway protection, patient was intubated and seen shortly thereafter by critical care in the ICU, central line was inserted and the patient was placed on pressor agents due to shock. Empiric antibiotics were started and IV seizure medications were ordered. Over the next few days, patient's sodium improved, however, early in the morning of 03/29/2022, patient was noted to be in SVT and later A. fib with RVR, Cardizem 10 mg bolus was given slowing the rhythm but there was transient hypotension with this, due to persistent A. fib with RVR, patient was placed on amiodarone and a therapeutic dose of Lovenox. Stroke alert was called when the patient was examined and found to have a left dilated pupil which did not react to light, patient was not withdrawing to pain even though she had been off sedation for approximately 2 hours. CTA of the brain was ordered as well as a CTA of the head and neck, imaging study showed no evidence of intracranial bleed or pathology MRI was ordered and Lovenox was discontinued, an EEG was also ordered. Later in the morning on 03/29/2022, before the patient was taken for her MRI, she was noted to become bradycardic and finally coded with a rhythm of PEA. 2 doses of IV epinephrine 1 mg was administered, 1 amp of bicarb was administered, and CPR was continued for approximately 8 to 10 minutes. Return of spontaneous circulation was noted to be present at that time and CPR was stopped. I had a conversation with the patient's son prior to the event and he confirmed the patient was still a full code. After the code, MRI was canceled, patient's family came in and I had a talk with the patient's 2 sons who finally requested that the patient be terminally extubated and all pressors and treatment be stopped. At that time patient's pupils were dilated bilaterally. At 1325 on 03/29/2022, patient was noted to be pulseless, apneic, and unresponsive. She was pronounced at that time. Visit Charges Inpatient E&M: 99675 Disch Hosp >30min
[2022-03-31 15:19] LABS: Pathologist Review Reviewed
[2022-04-01 09:32] LABS: Pathologist Review Reviewed
--- NOTE | 2022-04-05 10:50 | NURSING ---
Addendum entered by Paola Lombardo 04/05/22 11:01: FABRICIO AQUINO 03/29/22 at 1042 Original Note: unable to chart under CODE BLUE documentation. Cardiac Arrest at 1042 in ICU, History of Events: questionable seizures, multisystem failure, heart rate 30s on monitor, no pulse. 1044 initiated CPR, epinephrine 1 mg given IV by Anna Carmichael 1045 paused CPR for pulse check, no pulse present PEA, resumed CPR 1046 CPR ongoing, sodium bicarb 8.4% IN 50 mL IV given by Anna Carmichael 1047 CPR ongoing, epinephrine 1 mg IV given by Anna Carmichael 1048 paused CPR for pulse check, ROSC achieved, pulse 40, sinus bradycardia 1048 atropine 1 mg IV given by Anna Carmichael, pulse 39, sinus bradycardia Airway maintained with ETT Rogerio, son notified at 1100 by Anna Carmichael Physician Timber Watchman: Ruben Veliz Responders: Altaf Carmichael, Freida Arredondo, Dara Malloy, Paula Cook, Stephanie Griffith, Jason Lee, Ronit Bennett Team Recorder: Paola Lombardo
== END 2022-03-29 14:50 | DRG 640 ==
LOC: ED 23:28 → ICU 23:47
PROVIDERS: Hospitalist; Internal Medicine; Internal Medicine Critical Care Medicine; Nurse Practitioner Adult Health; Admitting Provider Family Medicine; Emergency Provider Emergency Medicine; PCP Family Medicine; Visit Provider Internal Medicine
DX: E87.1 Hypo-osmolality and hyponatremia (principal); J96.01 Acute respiratory failure with hypoxia; G93.6 Cerebral edema; I47.1 Supraventricular tachycardia; R57.9 Shock, unspecified; I48.19 Other persistent atrial fibrillation; E87.20 Acidosis, unspecified; E86.0 Dehydration; J44.9 Chronic obstructive pulmonary disease, unspecified; G40.909 Epilepsy, unspecified, not intractable, without status epilepticus; F10.20 Alcohol dependence, uncomplicated; E87.8 Other disorders of electrolyte and fluid balance, not elsewhere classified; I10 Essential (primary) hypertension; F17.210 Nicotine dependence, cigarettes, uncomplicated; I65.01 Occlusion and stenosis of right vertebral artery; K21.9 Gastro-esophageal reflux disease without esophagitis; E03.9 Hypothyroidism, unspecified
CPT/HCPCS: 31500; 31720; 36415; 36600; 70450; 70496; 70498; 71045; 76770; 80048; 80053; 80061; 81001; 82550; 82570; 82803; 82962; 83735; 83930; 83935; 84100; 84295; 84300; 84443; 84478; 84484; 85025; 85610; 85730; 87040; 87070; 87086; 87205; 92950; 93005; 93306; 94002; 94003; 94640; 94799; 95819; 97802; 97803; 99251; 99285; J7030; J7050; P9612; Q9967; A4216; C1751; G0463; J0330; J3010; J3490